=== PATIENT | female | born 1950 | race Caucasian/White ===

== ENCOUNTER 2018-03-16 22:34 | Inpatient (IN) | payer OTHER ==
[~2018-03-16] VITALS: Ht 180.3 cm; Wt 116.1 kg
[2018-03-16 22:34] VITALS: BP 123/63
--- NOTE | 2018-03-16 22:48 | NUR ---
PT BIBA BLS TO ER BED 02
[2018-03-16] MEDS ORDERED: ACETAMINOPHEN EXTRA STRENGTH 500 MG TAB PO ONE (23:00)
[2018-03-16] MEDS ORDERED: ACETAMINOPHEN EXTRA STRENGTH 500 MG TAB ONE (23:08)
[2018-03-16] MEDS ORDERED: NACL 0.9% 500 ML IV SCH (23:26)
[2018-03-16] MEDS ORDERED: ceFAZolin 1,000 MG in DEXT 5% MINI-BAG PLUS 50 ML IV ONE (23:30)
[2018-03-16] MEDS ORDERED: ONDANSETRON 4 MG/2 ML VIAL IVP ONE (23:30)
[2018-03-16] MEDS ORDERED: MORPHINE SULFATE 2 MG/ML SYR IVP ONE (23:30)
--- NOTE | 2018-03-17 00:24 | NUR ---
IV ATTEMPTED X 2 UNNSUCCESFUL. PT REFUSING IV NOW
--- NOTE | 2018-03-17 00:25 | NUR ---
PT TOLD SHE CANNOT HAVE BLANKETS D/T FEVERS
--- NOTE | 2018-03-17 00:35 | NUR ---
PT REFUSED EKG, CALLED EMT A "FUCKING ASSHOLE" AND YELLED AT EMT TO LEAVE ROOM
[2018-03-17] MEDS ORDERED: ceFAZolin 1,000 MG VIAL ONE (01:01)
[2018-03-17 01:29] LABS: BASOPHILS % (AUTO) 0.4 % (0.0-2.0); HEMATOCRIT 34.5 % (36-48); HEMOGLOBIN 11.5 g/dL (12.0-16.0); LYMPHOCYTES # (AUTO) 1.8 K/uL (2.5-16.5); LYMPHOCYTES % (AUTO) 22.1 % (20.5-51.1); MEAN CORPUSCULAR HEMOGLOBIN 31 pg (27-31); MEAN CORPUSCULAR HGB CONC 33 g/dL (33-37); MEAN CORPUSCULAR VOLUME 92.2 fL (80-94); NEUTROPHILS # (AUTO) 5.2 K/uL (1.8-7.7); NEUTROPHILS % (AUTO) 65.5 % (42.2-75.2); PLATELET COUNT (AUTO) 235 K/uL (140-450); RED BLOOD CELL COUNT(AUTO) 3.74 MIL/uL (4.20-5.40); RED CELL DISTRIBUTION WIDTH 13.7 % (11.6-13.7)
--- NOTE | 2018-03-17 01:32 | NUR ---
PT ONGOING WITH ANTIBIOTIC NO ADVERSE REACTION NOTED, PT AAO X4 , SKIN WARM TO TOUCH RESP. EVEN AND UNLBAORED, PT VERBALIZED I WAS IN BED LAST SATURDAY AND I HAVE SPASM AND MY LEG WENT TO SLEEP, NOTED REDNESS ON RIGHT FRY, PER PT HX OF CHF, STROKE, APPENDECTOMY, TONSILLECTOMY, CATARACT REMOVAL, KNEE SURGERY.
[2018-03-17 01:47] LABS: ALBUMIN 2.7 g/dL (3.4-5.0); ANION GAP 11.4 (8-16); CARBON DIOXIDE 29.7 mmol/L (21-32); CREATININE 0.7 mg/dL (0.6-1.3); POTASSIUM 4.1 mmol/L (3.5-5.1); TOTAL BILIRUBIN 0.3 mg/dL (0.0-1.0)
[2018-03-17 01:54] LABS: CREATINE KINASE MB 0.5 ng/mL (0-3.6)
[2018-03-17 01:59] LABS: PROTHROMBIN TIME 10.6 secs (10.8-13.4)
[2018-03-17] MEDS ORDERED: DOCUSATE SODIUM 100 MG GELCAP PO PRN (02:00)
[2018-03-17] MEDS ORDERED: MORPHINE SULFATE 2 MG/ML SYR IVP PRN (02:00)
[2018-03-17] MEDS ORDERED: ONDANSETRON 4 MG/2 ML VIAL IM/IVP PRN (02:00)
[2018-03-17] MEDS ORDERED: ACETAMINOPHEN 325 MG TAB PO PRN (02:00)
[2018-03-17 02:11] LABS: APPEARANCE,URINE CLEAR (CLEAR); BLOOD, URINE NEGATIVE (NEGATIVE); COLOR,URINE YELLOW (YELLOW); UGLUCOSE NEGATIVE (NEGATIVE)
[2018-03-17 02:12] LABS: BILIRUBIN,URINE NEGATIVE (NEGATIVE); LEUKOCYTE ESTERASE ,URINE NEGATIVE (NEGATIVE); NITRITE, URINE NEGATIVE (NEGATIVE)
--- NOTE | 2018-03-17 02:25 | NUR ---
PT AAO AWARE NEED TO BE TRANSFER IN THE FLOOR, EMT TAKING PICTURE OF RIGHT LEG AND ABDOMINAL FOLDS
[2018-03-17 02:45] VITALS: BP 117/48
--- NOTE | 2018-03-17 02:45 | NUR ---
RECEIVED PT FROM ER VIA [place] ESPARZA RN GIVE A REPORT AT BED SIDE PT IS AAOX4 ON TELEMETRY SR PINK COLOR ON ABD FOLDS, RT LE REDNESS AND SCAB AND SCAR, PROTOCOL FOR FALL RISK ON , NOT FEVER SHE DENIAL JOHN SANDOVAL IS ;ORIENTED TO THE FLOOR CALL LIGHT WITHIN REACH
--- NOTE | 2018-03-17 02:52 | NUR ---
Patient will be admitted to care of DR. MATHIAS. Admited to TELE. Will go to room 105A . Belongings list completed. Report to ROWENA
[2018-03-17 03:02] LABS: CHOL/HDL RATIO 1.8 (1-4.5); MAGNESIUM 1.7 mg/dL (1.8-2.4); PHOSPHORUS 4.2 mg/dL (2.5-4.9); THYROID STIMULATING HORMONE 3.73 uIU/mL (0.34-3.74)
[2018-03-17] MEDS: NACL 0.9% 1,000 ML IV SCH ×3 (03:25→18:55)
[2018-03-17] MEDS ORDERED: PHEN100C3 PO (03:30)
[2018-03-17] MEDS ORDERED: BLEOS OP (03:30)
[2018-03-17] MEDS ORDERED: PAX20 PO (03:30)
[2018-03-17] MEDS ORDERED: TRAM50TA1 PO (03:30)
[2018-03-17] MEDS ORDERED: METO25TA PO (03:30)
[2018-03-17] MEDS ORDERED: BACL10TA4 PO (03:30)
[2018-03-17] MEDS ORDERED: PRON INH (03:30)
[2018-03-17] MEDS ORDERED: MONT10TA35 PO (03:30)
[2018-03-17] MEDS ORDERED: FLO.1 PO (03:30)
[2018-03-17] MEDS ORDERED: GABA300C PO (03:30)
[2018-03-17] MEDS ORDERED: traMADol 50 MG TAB PO SCH (03:45)
[2018-03-17 04:00] VITALS: BP 112/48
--- NOTE | 2018-03-17 04:00 | NUR ---
PT IS ASSISTED TO USED BSC VOIDING WELL NOT DISTRESS NOTED IV ON RT AC INFUSING WELL ON TELEMETRY SR
[2018-03-17] MEDS ORDERED: CLINDAMYCIN 600 MG/4 ML VIAL ONE (04:29)
[2018-03-17] MEDS ORDERED: CLINDAMYCIN 600 MG in DEXTROSE 5% 50 ML IV SCH (05:00)
--- NOTE | 2018-03-17 06:08 | NUR ---
PT ON TELEMETRY SR SLEEPING AT THIS TIME BED ALARM ON
[2018-03-17 06:54] LABS: BASOPHILS % (AUTO) 0.3 % (0.0-2.0); HEMATOCRIT 35.1 % (36-48); HEMOGLOBIN 11.5 g/dL (12.0-16.0); LYMPHOCYTES # (AUTO) 1.8 K/uL (2.5-16.5); LYMPHOCYTES % (AUTO) 25.7 % (20.5-51.1); MEAN CORPUSCULAR HEMOGLOBIN 31 pg (27-31); MEAN CORPUSCULAR HGB CONC 33 g/dL (33-37); MEAN CORPUSCULAR VOLUME 93.3 fL (80-94); MONOCYTES # (AUTO) 0.7 K/uL (0.8-1.0); MONOCYTES % (AUTO) 10.2 % (1.7-9.3); NEUTROPHILS # (AUTO) 4.4 K/uL (1.8-7.7); NEUTROPHILS % (AUTO) 63.8 % (42.2-75.2); PLATELET COUNT (AUTO) 231 K/uL (140-450); RED BLOOD CELL COUNT(AUTO) 3.77 MIL/uL (4.20-5.40); WHITE BLOOD COUNT (AUTO) 6.8 K/uL (4.8-10.8)
[2018-03-17] MEDS ORDERED: MAGNESIUM OXIDE 400 MG TAB PO SCH ×2 (07:00→12:00)
[2018-03-17 07:08] LABS: CARBON DIOXIDE 27.9 mmol/L (21-32); CREATININE 0.6 mg/dL (0.6-1.3); POTASSIUM 3.9 mmol/L (3.5-5.1)
--- NOTE | 2018-03-17 07:30 | NUR ---
RECEIVED PT ON BED AAOX4. NO SOB NOTED. NO C/O PAIN AT THIS TIME. IV TO RT FOREARM PATENT AND INTACT. CHEST, DIMINISHED AIR ENTRY TO THE BASES. ABDOMEN SOFT, BOWEL SOUNDS PRESENT. SLIGHT REDNESS TO ABDOMINAL FOLD NOTED, INTER DRY CLOTH IN PLACE. RT LOWER EXT REDNESS FROM CELLULITIS NOTED, WARM TO TOUCH, SKIN INTACT. BLE SWELLING +1, PITTING NOTED, BLE ELEVATED WITH PILLOWS. INSTRUCTED PT TO CALL FOR ASSISTANCE, CALL LIGHT WITHIN REACH, PT VERBALIZED UNDERSTANDING.
[2018-03-17 08:00] VITALS: BP_SYST 111; BP_SYST 117; BP_DIAS 65; BP_DIAS 77
[2018-03-17] MEDS ORDERED: PREDNISOL/SULFACE 0.23%-10% OP SOL. 5 ML BTL OP SCH (09:00)
[2018-03-17] MEDS: GABAPENTIN 300 MG CAP PO SCH ×2 (09:07→20:56)
[2018-03-17] MEDS: METOPROLOL 25 MG TAB PO SCH ×2 (09:07→20:55)
[2018-03-17] MEDS: FLUDROCORTISONE 0.1 MG TAB PO SCH ×2 (09:08→20:52)
[2018-03-17] MEDS: PARoxetine 20 MG TAB PO SCH (09:08)
[2018-03-17] MEDS: BACLOFEN 10 MG TAB PO SCH ×2 (09:08→20:52)
[2018-03-17] MEDS: LACTOBACILLUS RHAMNOSUS GG 1 EACH CAP PO SCH (09:08)
[2018-03-17] MEDS: INTERDRY CLOTH TP SCH (09:09)
--- NOTE | 2018-03-17 09:13 | NUR ---
PATIENT HAS BEEN SCREENED AND CATEGORIZED HIGH NUTRITION RISK. PATIENT WILL BE SEEN WITHIN 1-2 DAYS OF ADMISSION. 03/17/18 03/18/[address]
[2018-03-17] MEDS ORDERED: PHENYTOIN 100 MG CAPER PO SCH ×4 (11:05→21:00)
[2018-03-17 12:00] VITALS: BP 111/65
[2018-03-17] MEDS: CLINDAMYCIN PHOS 600MG/D5W PM 50 ML IV SCH ×2 (12:25→20:59)
--- NOTE | 2018-03-17 14:55 | NUR ---
Architectural Modeler Note: Per Tino from [facility] , patient is on a 7 day bed hold and is one of their short term patients (not intermediate teacher). Tino stated patient was admitted at their facility in November 2017. He reported prior to patient's hospital admission their staff were working on patient's discharge plan to board and [facility]. Tino told me a couple of board and care facilities that evaluated patient, accepted patient, however, patient refused to be discharged to those board and care facilities. He stated patient has an existing Advance Directive which indicates Martha Hurd is patient's power of tax attorney healthcare agent. I requested he fax me Advance Directive documents. He told me he would. Addendum: 03/17/18 at 1505 by Shobha Bazzi Per Tino, patient was receiving PT and OT at their facility.
--- NOTE | 2018-03-17 15:25 | NUR ---
PT RESTING. NO SOB NOTED. NO SIGN SOF PAIN AT THIS TIME. ENDORSED TO ESME-RN FOR CONTINUITY OF CARE.
--- NOTE | 2018-03-17 15:30 | NUR ---
RECEIVED REPORT FROM NURSE SOL AT BEDSIDE. PT IS AAOX4. NO S/S OF ACUTE DISTRESS NOTED. NO C/O PAIN AT THIS TIME. IV TO RT FOREARM 22G, SL, PATENT AND INTACT. IV CATH TO LEFT HAND 22G, ASYMPTOMATIC, INFUSING WELL. INTER DRY CLOTH UNDER BREAST. RT LOWER LEG REDNESS CELLULITIS NOTED, SKIN INTACT. BLE SWELLING +1, PITTING NOTED, BLE ELEVATED WITH PILLOWS. BED LOCKED IN LOWEST POSITION. CALL LIGHT WITHIN REACH.
[2018-03-17 16:00] VITALS: BP 130/76
--- NOTE | 2018-03-17 16:10 | NUR ---
VITALS TAKEN, PT TOLERATED WELL, HELPED PT USING BEDSIDE COMMODE. PT SAFELY RETURNED TO BED.
--- NOTE | 2018-03-17 19:30 | NUR ---
REPORT RECEIVED FROM ESME RN DAYSHIFT NURSE AT BEDSIDE FOR CONTINUITY OF CARE, PT IN STABLE CONDITION.
--- NOTE | 2018-03-17 19:30 | NUR ---
ENDORSED PT TO DEPUTY REGISTER OF DEEDS. PT IN STABLE CONDITION.
[2018-03-17 20:00] VITALS: BP 112/47
[2018-03-17] MEDS: MONTELUKAST SODIUM 10 MG TAB PO SCH (20:56)
[2018-03-17] MEDS: NYSTATIN POW 100 MU/GM 15 GM BTL TP SCH (21:00)
--- NOTE | 2018-03-17 21:00 | NUR ---
PT IN BED, ALL FALLS PRECAUTIONS IN PLACE, PT REQUEST ASSISTANCE TO THE COMMODE. PT REQUIRE A 1 PERSON MODERATE ASSIST FOR PIVOT TRANSFER TO COMMODE AND BACK. PT ASSISTED BACK TO BED AND GIVEN ALL DUE MEDICATIONS. PT C/O 10/27 PAIN. PT WAS GIVEN BACLOFEN 10 MG AND NEURONTIN 300MG WHICH IS DUE AT 2100 FOR PAIN WHICH WAS EXPLAINED TO THE PT. PT AGREED TO TAKE SCHEDULED MEDICATION AND PRIMARY NURSE WILL CHECK BACK TO MAKE SURE MEDIATION STOPPED HER PAIN. CLINDAMYCIN IVPB GIVEN ALSO AT THIS TIME, WILL MONITOR FOR ANY ADVERSE EFFECTS V/S FOLLOWS T 98.5 P 77 R 20 B/P 112/47 02 94 WITH 2L VIA N/C.
[2018-03-17] MEDS: ALBUTEROL SULFATE/IPRATROPIU 3 ML SOL IH PRN (21:20)
--- NOTE | 2018-03-17 22:50 | NUR ---
PT ASLEEP IN LOW BED NO ADVERSE EFFECTS OF CLINDAMYCIN NOTED, AND NO S/S OF PAIN OR DISTRESS NOTED. BED IN LOW POSITION AND ALL FALLS PRECAUTIONS IN PLACE, AND CALL BARNES IN REACH.
[2018-03-18] VITALS: BP 104/60
--- NOTE | 2018-03-18 00:30 | NUR ---
PT IN BED ASLEEP V/S FOLLOWS T 98.4 P 74 R 18 B/P 104/60 02 94 WITH 2L VIA N/C. PT IN BED ALL FALLS PRECAUTIONS IN PLACE, NO S/S OF PAIN OR DISTRESS NOTED.
[2018-03-18 04:00] VITALS: BP 99/35
--- NOTE | 2018-03-18 05:00 | NUR ---
PT IN BED, NO S/S OF PAIN OR DISTRESS NOTED, V/S FOLLOWS T 98.2 P 76 R 20 B/P 99/35 02 92% ON R/A. PT GIVEN 2N DOSE OF CLINDAMYCIN, NO ADVERSE EFFECTS NOTED. LAB DRAWS AT BEDSIDE .
[2018-03-18] MEDS: NACL 0.9% 1,000 ML IV SCH ×3 (05:57→23:59)
[2018-03-18] MEDS: CLINDAMYCIN PHOS 600MG/D5W PM 50 ML IV SCH ×3 (05:59→20:10)
[2018-03-18] MEDS: ALBUTEROL SULFATE/IPRATROPIU 3 ML SOL IH PRN (06:58)
--- NOTE | 2018-03-18 07:34 | NUR ---
REPORT GIVEN TO DOUGIE SERVIN DAYSHIFT NURSE PT IN STABLE CONDITION.
--- NOTE | 2018-03-18 07:38 | NUR ---
RECEIVED FROM BEDSIDE REPORT FROM COSTING ANALYST RN. PT IS AO X4. COMPLAINING OF MILD RT LEG PAIN. STATES THAT THE NEURONTIN AND BACLOFEN ARE "VERY EFFECTIVE" FOR HER PAIN. WILL ADMINISTER THEM SCHEDULED 0900 MEDS. PT IS ABLE TO STAND AND PIVOT TO THE BEDSIDE COMMODE WITH ASSIST. GENERALIZED WEAKNESS. LUNGS SOUNDS DIMINISHED. HEART RHYTHM REGULAR. RT LOWER LEG CELLULITIS WITH SMALL SCABS NOTED. SKIN OTHERWISE INTACT. IV SITE PATENT AND ASYMPTOMATIC, INFUSING IVF PER MD ORDERS. UPDATED BOARD AND INTRODUCED SELF. ALL SAFETY PRECAUTIONS IN PLACE, WILL CONTINUE TO MONITOR. Addendum: 03/18/18 at 1036 by Kajal Anderson Meng, RN RT LEG REDNESS, WARMTH, SWELLING D/T CELLULITIS. LUE 1+ NON-PITTING EDEMA. SEIZURE PRECAUTIONS. Addendum: 03/18/18 at 1255 by Kajla Anderson Meng, RN BLACK GLASSES ON. PER PATIENT, SHE HAD CATARACT SURGERY ONE WEEK AGO.
[2018-03-18 08:00] VITALS: BP 107/59
[2018-03-18 08:07] LABS: BASOPHILS % (AUTO) 0.4 % (0.0-2.0); HEMATOCRIT 34.3 % (36-48); HEMOGLOBIN 11.5 g/dL (12.0-16.0); LYMPHOCYTES # (AUTO) 1.2 K/uL (2.5-16.5); LYMPHOCYTES % (AUTO) 19.1 % (20.5-51.1); MEAN CORPUSCULAR HEMOGLOBIN 31 pg (27-31); MEAN CORPUSCULAR HGB CONC 33 g/dL (33-37); MEAN CORPUSCULAR VOLUME 92.6 fL (80-94); MONOCYTES # (AUTO) 0.5 K/uL (0.8-1.0); MONOCYTES % (AUTO) 8.1 % (1.7-9.3); NEUTROPHILS # (AUTO) 4.7 K/uL (1.8-7.7); NEUTROPHILS % (AUTO) 72.4 % (42.2-75.2); PLATELET COUNT (AUTO) 263 K/uL (140-450); RED CELL DISTRIBUTION WIDTH 13.5 % (11.6-13.7); WHITE BLOOD COUNT (AUTO) 6.5 K/uL (4.8-10.8)
[2018-03-18] MEDS: PARoxetine 20 MG TAB PO SCH (08:19)
[2018-03-18] MEDS: FLUDROCORTISONE 0.1 MG TAB PO SCH ×2 (08:20→20:06)
[2018-03-18] MEDS: BACLOFEN 10 MG TAB PO SCH ×2 (08:20→20:06)
[2018-03-18] MEDS: PHENYTOIN 100 MG CAPER PO SCH ×2 (08:20→16:46)
[2018-03-18] MEDS: GABAPENTIN 300 MG CAP PO SCH ×2 (08:20→20:08)
[2018-03-18] MEDS: LACTOBACILLUS RHAMNOSUS GG 1 EACH CAP PO SCH (08:20)
[2018-03-18] MEDS: METOPROLOL 25 MG TAB PO SCH ×2 (08:21→20:07)
--- NOTE | 2018-03-18 08:24 | NUR ---
PT COMPLAINING OF PAIN IN RT UPPER LATERAL LEG ABOVE THE SITE OF CELLULITIS. NO ERYTHEMA OR INCREASED TEMPERATURE NOTED BUT PT COMPLAINS OF TENDERNESS TO PALPATION. DR. CUMMINS HAS INSTRUCTED THE PT TO INFORM RN IF PAIN PERSISTS AFTER SCHEDULED 0900 MEDICATIONS. PT VERBALIZED UNDERSTANDING. WILL CONTINUE TO MONITOR. Addendum: 03/18/18 at 1442 by Kajal Anderson Meng RN DR. CUMMINS AWARE AND HAS ASSESSED PT REGARDING THIS COMPLAINT.
[2018-03-18 08:26] LABS: ANION GAP 13.1 (8-16); CREATININE 0.6 mg/dL (0.6-1.3); POTASSIUM 4.1 mmol/L (3.5-5.1)
[2018-03-18 08:34] LABS: MAGNESIUM 2.3 mg/dL (1.8-2.4); PHOSPHORUS 4.5 mg/dL (2.5-4.9)
--- NOTE | 2018-03-18 08:34 | NUR ---
NYSTATIN POWDER NOT IN CASSETTE OR AT BEDSIDE. OBTAINED IT FROM PHARMACY.
--- NOTE | 2018-03-18 09:01 | NUR ---
Jet Aircraft Servicer Note: I called and spoke with Tino from [facility] , I told him I had not received patient's Advance Directive documents via fax. Per Tino, he will tell their medical records dept to fax documents to me today.
[2018-03-18] MEDS: INTERDRY CLOTH TP SCH (09:12)
[2018-03-18] MEDS: NYSTATIN POW 100 MU/GM 15 GM BTL TP SCH ×2 (09:13→20:10)
[2018-03-18] MEDS: HYDROcodone/APAP 5/325 MG 1 TAB TAB PO PRN ×2 (09:50→23:25)
--- NOTE | 2018-03-18 09:51 | NUR ---
NORCO ADMINISTERED. PT JUST WORKED WITH PHYSICAL THERAPY. PER PT, THE PAIN WAS STARTING TO COME DOWN GRADUALLY AFTER RECEIVING THE SCHEDULED 0900 NEURONTIN AND BACLOFEN. PAIN SPIKED AFTER WORKING WITH PHYSICAL THERAPY. PT WAS ABLE TO STAND AND PIVOT PER PHYSICAL THERAPY. PT STATES SHE DOES NOT WANT TO BE DISTURBED/WOKEN UP UNTIL SHE IS NATURALLY AWAKE FROM THE NAP SHE PLANS TO TAKE NOW. WILL NOTIFY CHIEF LIBRARIAN BRANCH.
--- NOTE | 2018-03-18 10:03 | NUR ---
REPORTED ORTHOSTATIC HYPOTENSION VALUES TO DR. CUMMINS. Addendum: 03/18/18 at 1237 by Kajal Anderson Meng, RN WRONG PATIENT.
--- NOTE | 2018-03-18 12:38 | NUR ---
PT SLEEPING IN BED, WITH LIGHT SNORING. PT DOES NOT WISH TO BE DISTURBED WHILE ASLEEP. WILL ROUND ON PT LATER AND CONTINUE TO MONITOR.
--- NOTE | 2018-03-18 13:11 | NUR ---
PT STATES THE NORCO WELL VERY WELL IN TERMS OF CONTROLLING HER RT LEG PAIN. STATES THE PAIN IS NOW 5/10, TOLERABLE. DOES NOT WANT PAIN MEDICATION. WILL CONTINUE TO MONITOR.
--- NOTE | 2018-03-18 15:11 | NUR ---
03/18/18 RD INITIAL ASSESSMENT COMPLETED PLEASE REFER TO NUTRITION ASSESSMENT UNDER CARE ACTIVITY FOR ESTIMATED NUTRITIONAL NEEDS. 1. CONTINUE CARDIAC DIET TOLERATED 2. RECOMMEND ENSURE MAX AND MULTIVITAMIN QD 3. RD TO FOLLOW-UP 3-5 DAYS, MODERATE RISK SHERRELL LOPEZ, RD
--- NOTE | 2018-03-18 15:22 | NUR ---
HELPED LOW EMISSION AUTOMOBILE DESIGNER WITH SPONGE BATH. NO S/S DISTRESS.
--- NOTE | 2018-03-18 15:41 | NUR ---
HELPED PATIENT TO BEDSIDE COMMODE. PT VOIDED. HELPED PT BACK INTO BED. PT STATES THE PAIN IS 4/10 TOLERABLE IN RT LOWER LEG. STATES SHE DOES NOT NEED PAIN MEDICATION AT THIS TIME.
--- NOTE | 2018-03-18 15:51 | NUR ---
LT HAND SLIGHTLY MORE SWOLLEN THAN IN THE MORNING HOURS. IV SITE IN LT HAND IS ASYMPTOMATIC AND PATENT, FLUSHES WELL. DENIES PAIN ALONG IV SITE. STOPPED IVF WHICH ARE INFUSING IN THE LT HAND AND ELEVATED PT HAND ON PILLOW. WILL MONITOR AND REC-CONNECT IVF LATER.
[2018-03-18 16:00] VITALS: BP 112/61
--- NOTE | 2018-03-18 18:23 | NUR ---
NO CHANGE IN CONDITION. PT RESTING IN BED, AROUSABLE BY VOICE. NO COMPLAINTS OF PAIN AND DISCOMFORT. WILL CONTINUE TO MONITOR.
--- NOTE | 2018-03-18 19:10 | NUR ---
ENDORSED PLAN OF CARE TO DIAL BRUSHER RN AT BEDSIDE. PT IN STABLE CONDITION.
[2018-03-18] MEDS: MONTELUKAST SODIUM 10 MG TAB PO SCH (20:05)
--- NOTE | 2018-03-18 20:10 | NUR ---
ADMINISTERED SCHEDULED MEDICATIONS, PT TOLERATED WELL.
[2018-03-19] VITALS: BP 150/64
[2018-03-19] MEDS: NACL 0.9% 1,000 ML IV SCH ×2 (03:00→10:30)
[2018-03-19] MEDS: CLINDAMYCIN PHOS 600MG/D5W PM 50 ML IV SCH (04:34)
--- NOTE | 2018-03-19 07:09 | NUR ---
ENDORSED PT TO DAY SHIFT RN BROCK FOR CONTINUITY OF CARE. PT IN STABLE CONDITION.
--- NOTE | 2018-03-19 07:15 | NUR ---
RECEIVED PT FROM NIGHTY SHIFT NURSEKAITLIN, PT IS AWAKE AND LYING ON THE BED WITH SIDE RAILS UP AND CALL LIGHT WITHIN REACH. PT'S IV LINE WAS INFILTRATED AND IV FLUID WAS STOPPED. WAS INFORMED ABOUT THE IV LINE NOT BEING PATENT. WILL BE RE-INSERTING A NEW IV LINE. FALL PRECAUTION ENFORCED. PT DENIES PAIN AT THIS TIME, NO SOB AND NO SIGN OF DISTRESS NOTED. WILL CONTINUE TO MONITOR PT.
--- NOTE | 2018-03-19 07:30 | NUR ---
PT WAS ASSISTED TO THE COMMODE AND URINATED AND ASSISTED BACK TO THE BED AND MADE COMFORTABLE. NO SIGN OF DISTRESS NOTED. WILL MONITOR PT.
[2018-03-19 07:42] LABS: ANION GAP 12.4 (8-16); CARBON DIOXIDE 25.5 mmol/L (21-32); CREATININE 0.5 mg/dL (0.6-1.3); POTASSIUM 3.9 mmol/L (3.5-5.1)
[2018-03-19 08:00] VITALS: BP 130/70
[2018-03-19] MEDS ORDERED: traMADol 50 MG TAB PO PRN (08:57)
[2018-03-19] MEDS: NYSTATIN POW 100 MU/GM 15 GM BTL TP SCH ×2 (09:00→20:23)
[2018-03-19] MEDS: PARoxetine 20 MG TAB PO SCH (09:36)
[2018-03-19] MEDS: MULTIVITAMIN 1 TAB PO SCH (09:37)
[2018-03-19] MEDS: LACTOBACILLUS RHAMNOSUS GG 1 EACH CAP PO SCH (09:37)
[2018-03-19] MEDS: FLUDROCORTISONE 0.1 MG TAB PO SCH ×2 (09:37→20:22)
[2018-03-19] MEDS: GABAPENTIN 300 MG CAP PO SCH ×2 (09:37→20:23)
[2018-03-19] MEDS: METOPROLOL 25 MG TAB PO SCH ×2 (09:38→20:22)
[2018-03-19] MEDS: BACLOFEN 10 MG TAB PO SCH ×2 (09:38→20:22)
[2018-03-19] MEDS: PHENYTOIN 100 MG CAPER PO SCH ×2 (09:38→18:27)
--- NOTE | 2018-03-19 09:40 | NUR ---
CM NOTE PATIENT HAS SECONDARY IEHP. PER IEHP RAMIRO DUKES # [phone], IF PATIENT IS GOING BACK TO SNF, FOR [facility] AUTH# [id number].
[2018-03-19] MEDS: INTERDRY CLOTH TP SCH (09:42)
--- NOTE | 2018-03-19 11:48 | NUR ---
PT EVALUATION WAS DONE TO PT, NOTE WAS MADE BY WOOD BORING MACHINE OPERATOR.
[2018-03-19 12:25] LABS: BASOPHILS % (AUTO) 0.3 % (0.0-2.0); HEMOGLOBIN 11.9 g/dL (12.0-16.0); LYMPHOCYTES # (AUTO) 0.9 K/uL (2.5-16.5); LYMPHOCYTES % (AUTO) 15.5 % (20.5-51.1); MEAN CORPUSCULAR HEMOGLOBIN 31 pg (27-31); MEAN CORPUSCULAR HGB CONC 33 g/dL (33-37); MEAN CORPUSCULAR VOLUME 92.4 fL (80-94); MONOCYTES # (AUTO) 0.6 K/uL (0.8-1.0); MONOCYTES % (AUTO) 10.8 % (1.7-9.3); NEUTROPHILS # (AUTO) 4.4 K/uL (1.8-7.7); NEUTROPHILS % (AUTO) 73.4 % (42.2-75.2); PLATELET COUNT (AUTO) 294 K/uL (140-450); RED CELL DISTRIBUTION WIDTH 13.5 % (11.6-13.7)
--- NOTE | 2018-03-19 12:41 | NUR ---
Certified Alcohol And Drug Counselor Note: I had previously requested Tino from [facility] to fax me patient's existing Advance Directive documents since he stated Martha Hurd is patient's power of living nurse for healthcare agent. Medical Records dept at [facility] faxed me patient's POLST, not Advance Directive documents. I called and spoke with Tino, I told him I had not received Advance Directive documents. He stated Martha Hurd has actually been [facility] staff she will provide them with power of living nurse for healthcare documents but has not. He stated he is not sure if Martha Hurd is one of patient's family members or her relationship with patient. Tino reported the only person they have listed as family on patient's chart is Wiley Licona (brother), he stated they don't have Wiley's phone number or address.
[2018-03-19] MEDS ORDERED: KETOROLAC 15 MG/ML VIAL IVP PRN (13:20)
--- NOTE | 2018-03-19 14:06 | NUR ---
PT WAS ASKED REGARDING THE RAZR SHE USED TO SHAVE HER CHIN LAST NIGHT AND PT VBERBALIZED THAT SHE HAS IN ON HER PURSE AND PT REFUSED TO HAND ON THE RAZOR BECAUSE SHE SAID THAT SHE WILL RETURN IT TO THE PLACE WHERE SHE CAME FROM.
--- NOTE | 2018-03-19 14:07 | NUR ---
K PAD WAS APPLIED TO THE PT'S RT LOWER LEG AND WAS ELEVATED ON A PILLOW.
--- NOTE | 2018-03-19 14:33 | NUR ---
U/S OF THE RT LOWER LEG IS BEING DONE TO PT NOW.
[2018-03-19] MEDS ORDERED: INTERDRY CLOTH TP PRN (15:00)
[2018-03-19 16:00] VITALS: BP 131/78
--- NOTE | 2018-03-19 19:15 | NUR ---
ENDORSED PT TO VALVE INSPECTOR NURSE, LUISA, FOR CONTINUITY OF CARE, PT IS AWAKE AND IS STABLE AT THIS TIME, WATCHING TV.
--- NOTE | 2018-03-19 19:16 | NUR ---
RECEIVED PT IN STABLE CONDITION FROM AM NURSE. MED SURG PT. AAO X4. WITH NO C/O ANY PAIN NOR DISCOMFORT NOTED A THIS TIME. HAS HL ON THE RT AC #20. CLEAR AND PATENT. HAS CELLULITIS ON THE RT LOWER LEG. PT CAN BE UP WITH ASSISTANCE TO BSC. PLAN OF CARE DISCUSSED AND VERBALIZED UNDERSTANDING. BED ON LOWEST POSITION. CALL LIGHT PLACE WITHIN EASY REACH. SIDE RAILS ARE UP WITH PADS FOR SEIZURE PROTECTION. FREQUENT ROUNDS NEEDED. WILL CONTINUE TO MONITOR.
[2018-03-19] MEDS: MONTELUKAST SODIUM 10 MG TAB PO SCH (20:23)
--- NOTE | 2018-03-19 21:45 | NUR ---
ASSISTED PT TO GET UP TO THE BSC. HAD A LARGE SOFT BM. BACK TO BED WITH NO SOB NOTED.
[2018-03-19] MEDS: HYDROcodone/APAP 5/325 MG 1 TAB TAB PO PRN (21:58)
[2018-03-19 22:58] VITALS: BP 124/66
--- NOTE | 2018-03-20 01:00 | NUR ---
MADE ROUNDS. PT SLEEPING WELL. NO S/S OF ANY DISCOMFORT NRO PAIN NOTED.
--- NOTE | 2018-03-20 02:30 | NUR ---
PT ASLEEP . NO S/S OF ANY DISCOMFORT NOTED.
--- NOTE | 2018-03-20 04:00 | NUR ---
PT IS ASLEEP. NO S/S OF ANY RESPIRATORY DISTRESS NOTED. WILL CONTINUE TO MONITOR.
--- NOTE | 2018-03-20 05:24 | NUR ---
AWAKE. BLOOD JUST DRAWN FOR AM LABS, ASSISTED UP TO THE BSC. VOIDED. BACK TO BED. WITH SLIGHT SOB SO O22L/NC ON.
[2018-03-20] MEDS: NACL 0.9% 1,000 ML IV SCH (06:30)
--- NOTE | 2018-03-20 06:30 | NUR ---
IVF NS ALREADY DISCONTINUED, JUST SALINE LOCK.
[2018-03-20 07:05] LABS: BASOPHILS % (AUTO) 0.4 % (0.0-2.0); HEMATOCRIT 38.2 % (36-48); HEMOGLOBIN 12.6 g/dL (12.0-16.0); LYMPHOCYTES # (AUTO) 1.4 K/uL (2.5-16.5); LYMPHOCYTES % (AUTO) 23.4 % (20.5-51.1); MEAN CORPUSCULAR HEMOGLOBIN 31 pg (27-31); MEAN CORPUSCULAR HGB CONC 33 g/dL (33-37); MONOCYTES # (AUTO) 0.5 K/uL (0.8-1.0); MONOCYTES % (AUTO) 7.9 % (1.7-9.3); NEUTROPHILS # (AUTO) 4.2 K/uL (1.8-7.7); NEUTROPHILS % (AUTO) 68.3 % (42.2-75.2); PLATELET COUNT (AUTO) 303 K/uL (140-450); RED BLOOD CELL COUNT(AUTO) 4.11 MIL/uL (4.20-5.40); RED CELL DISTRIBUTION WIDTH 13.7 % (11.6-13.7); WHITE BLOOD COUNT (AUTO) 6.1 K/uL (4.8-10.8)
--- NOTE | 2018-03-20 07:10 | NUR ---
ENDORSED PT IN STABLE CONDITION TO AM NURSE FOR CONTINUITY OF CARE.
--- NOTE | 2018-03-20 07:15 | NUR ---
PT REPORT RECEIVED FROM CUSTOMER ORDERS CLERK NURSE AT BEDSIDE. PT IS SLEEPING AT THIS TIME, NO S/S OF DISTRESS. PT HAS A R FA 20 GAUGE IV SITE, SALINE LOCK. SKIN INTACT EXCEPT FOR THE R LEG CELLULITIS. PT CURRENTLY ON ROOM AIR. BED IS IN LOW POSITION, CALL LIGHT WITHIN REACH. WILL CONTINUE TO MONITOR.
[2018-03-20 07:44] LABS: ANION GAP 13.2 (8-16); CARBON DIOXIDE 26.5 mmol/L (21-32); CREATININE 0.6 mg/dL (0.6-1.3); POTASSIUM 3.7 mmol/L (3.5-5.1)
[2018-03-20 08:00] VITALS: BP 129/79
[2018-03-20] MEDS ORDERED: INTERDRY CLOTH TP SCH ×2 (09:00)
[2018-03-20] MEDS: NYSTATIN POW 100 MU/GM 15 GM BTL TP SCH ×2 (09:00→20:48)
[2018-03-20] MEDS: PARoxetine 20 MG TAB PO SCH (09:29)
[2018-03-20] MEDS: METOPROLOL 25 MG TAB PO SCH ×2 (09:30→20:43)
[2018-03-20] MEDS: MULTIVITAMIN 1 TAB PO SCH (09:30)
[2018-03-20] MEDS: BACLOFEN 10 MG TAB PO SCH ×2 (09:30→20:43)
[2018-03-20] MEDS: LACTOBACILLUS RHAMNOSUS GG 1 EACH CAP PO SCH (09:31)
[2018-03-20] MEDS: PHENYTOIN 100 MG CAPER PO SCH ×2 (09:31→18:07)
[2018-03-20] MEDS: GABAPENTIN 300 MG CAP PO SCH ×2 (09:31→20:44)
[2018-03-20] MEDS: FLUDROCORTISONE 0.1 MG TAB PO SCH ×2 (09:31→21:02)
[2018-03-20] MEDS ORDERED: ECOTRIN 81 MG TABEC PO SCH (11:10)
--- NOTE | 2018-03-20 12:23 | NUR ---
PT COMFORTABLY RESTING IN BED, EATING LUNCH AT THIS TIME. NO S/S OF DISTRESS NOTED. CALL LIGHT WITHIN REACH. WILL CONTINUE TO MONITOR.
[2018-03-20 16:00] VITALS: BP 117/66
--- NOTE | 2018-03-20 19:20 | NUR ---
PT REPORT GIVEN AT BEDSIDE. PT ENDORSED IN STABLE CONDITION.
--- NOTE | 2018-03-20 19:21 | NUR ---
RECEIVED PT IN STABLE CONDITION FROM AM NURSE. AWAKE,ALERT AND ORIENTED X4. MED SURG PT. WITH NO C/O MARTINEZ DISCOMFORT NOR PAIN NOTED AT THIS TIME. HAS HL ON THE RT FA G#20. CLEAR AND PATENT. RT LOWER LEG STILL RED AND SWOLLEN. ELEVATED ON PILLOW. PLAN OF CARE DISCUSSED AND VERBALIZED UNDERSTANDING. BED ON LOWEST POSITION. SIDE RRAILS PADDED FOR SEIZURE PRECAUTION. CALL LIGHT PLACED WITHIN EASY REACH. INSTRUCTED TO CALL IF NEED TO GET UP AND USE BSC. WILL CONTINUE TO MONITOR.
[2018-03-20] MEDS: HYDROcodone/APAP 5/325 MG 1 TAB TAB PO PRN (20:44)
[2018-03-20] MEDS: MONTELUKAST SODIUM 10 MG TAB PO SCH (20:44)
--- NOTE | 2018-03-20 21:40 | NUR ---
ASSISTED PT IN GETTING UP AND INUSING THE BSC, VOIDED WELL. BACK TO BED AND POSITIONED FOR COMFORT.
--- NOTE | 2018-03-20 23:05 | NUR ---
IV ACCESS ON THE RT UPPER ARM G20 . DISCONTINUED. THEN ABLE TO START A NEW IV SITE ON THE RT WRIST G#24. CLEAR AND PATENT.
[2018-03-20 23:30] VITALS: BP 106/56
--- NOTE | 2018-03-20 23:55 | NUR ---
ASSISTED UP TO THE BSC. VOIDED WELL. BACK WITH NO SOB NOTED.
--- NOTE | 2018-03-21 02:00 | NUR ---
MADE ROUNDS. PT IS ASLEEP. NO S/S OF ANY DISCOMFORT NOTED.
--- NOTE | 2018-03-21 04:10 | NUR ---
PT ASLEEP. NO S/S OF ANY PAIN NOR DISCOMOFRT NOTED. WILL CONTINUE TO MONITOR.
--- NOTE | 2018-03-21 06:00 | NUR ---
PT ABLE TO SLEEP WELL DURING THE NIGHT. NO DISTRESS NOTED.
--- NOTE | 2018-03-21 07:10 | NUR ---
PT REPORT RECEIVED FROM CRANE ENGINEER NURSE AT BEDSIDE. PT IS SLEEPING AT THIS TIME, NO S/S OF DISTRESS. PT HAS A R WRIST 24 GAUGE IV SITE, SALINE LOCK. RLE CELLULITIS NOTED. PT CURRENTLY ON ROOM AIR. BED IS IN LOW POSITION, CALL LIGHT WITHIN REACH. WILL CONTINUE TO MONITOR.
--- NOTE | 2018-03-21 07:12 | NUR ---
ENDORSED PT IN STABLE CONDITION TO AM NURSE FOR CONTINUITY OF CARE.
[2018-03-21] MEDS ORDERED: ROC2I IV (07:54)
[2018-03-21] MEDS ORDERED: LACT10CA1 PO (07:55)
[2018-03-21] MEDS: PHENYTOIN 100 MG CAPER PO SCH ×2 (08:52→16:37)
[2018-03-21] MEDS: BACLOFEN 10 MG TAB PO SCH (08:52)
[2018-03-21] MEDS: FLUDROCORTISONE 0.1 MG TAB PO SCH (08:52)
[2018-03-21] MEDS: PARoxetine 20 MG TAB PO SCH (08:52)
[2018-03-21] MEDS: GABAPENTIN 300 MG CAP PO SCH (08:52)
[2018-03-21] MEDS: MULTIVITAMIN 1 TAB PO SCH (08:52)
[2018-03-21] MEDS: LACTOBACILLUS RHAMNOSUS GG 1 EACH CAP PO SCH (08:52)
[2018-03-21] MEDS: METOPROLOL 25 MG TAB PO SCH (08:53)
[2018-03-21] MEDS: NYSTATIN POW 100 MU/GM 15 GM BTL TP SCH (09:00)
[2018-03-21] MEDS ORDERED: ECOTRIN 81 MG TABEC PO SCH (09:00)
[2018-03-21 09:08] LABS: BASOPHILS % (AUTO) 0.7 % (0.0-2.0); HEMATOCRIT 38.4 % (36-48); HEMOGLOBIN 12.7 g/dL (12.0-16.0); LYMPHOCYTES # (AUTO) 1.3 K/uL (2.5-16.5); LYMPHOCYTES % (AUTO) 23.1 % (20.5-51.1); MEAN CORPUSCULAR HEMOGLOBIN 31 pg (27-31); MEAN CORPUSCULAR HGB CONC 33 g/dL (33-37); MEAN CORPUSCULAR VOLUME 93.1 fL (80-94); MONOCYTES # (AUTO) 0.4 K/uL (0.8-1.0); MONOCYTES % (AUTO) 6.9 % (1.7-9.3); NEUTROPHILS % (AUTO) 69.3 % (42.2-75.2); PLATELET COUNT (AUTO) 293 K/uL (140-450); RED BLOOD CELL COUNT(AUTO) 4.13 MIL/uL (4.20-5.40); RED CELL DISTRIBUTION WIDTH 13.5 % (11.6-13.7); WHITE BLOOD COUNT (AUTO) 5.8 K/uL (4.8-10.8)
[2018-03-21 09:16] LABS: CARBON DIOXIDE 26.7 mmol/L (21-32); CREATININE 0.7 mg/dL (0.6-1.3); POTASSIUM 3.7 mmol/L (3.5-5.1)
--- NOTE | 2018-03-21 10:26 | NUR ---
Crew Clerk Note: I called and spoke with Martha Hurd , she stated she is patient's sister and will fax me power of patent attorney for healthcare documents. I provided her with case management/hospice social worker dept fax number. She reported she lives in [place].
--- NOTE | 2018-03-21 10:32 | NUR ---
Firestop/Containment Worker Note: I faxed patient's medical information to [facility].
--- NOTE | 2018-03-21 11:30 | NUR ---
Scissors Sharpener Note: Per patient's nurse Nanda, patient is not on isolation. Per Tino from [facility] , patient may go to room 220C, accepting physician is Dr. Robins, counseling case manager Gemini mustafa aware.
[2018-03-21 11:54] VITALS: BP 127/64
--- NOTE | 2018-03-21 12:56 | NUR ---
CM NOTE PER [facility] PH# [phone], PATIENT WILL BE PICKED UP AT 1700 TIME TODAY GOING TO [address] RERE SERVIN AWARE.
[2018-03-21] MEDS ORDERED: ASPI-1173 PO (14:00)
--- NOTE | 2018-03-21 15:00 | NUR ---
P.T. NOTES PATIENT CLEARED BY RN FOR PT TX. CHART REVIEWED. ATTEMPTED TO WORK WITH PATIENT 2X FOR PT, BUT PATIENT CONTINUES TO DECLINE SHE IS PENDING DC FROM HOSPITAL TODAY. Pt PROVIDED W/EDU REGARDING BENEFITS OF PT AND MOBILITY BUT REFUSES PT, STATING "I'LL GET LOTS OF THERAPY AT THE PLACE I'M GOING TO AFTER HERE." NO PT TX DONE.
[2018-03-21 16:00] VITALS: BP 112/65
--- NOTE | 2018-03-21 17:20 | NUR ---
PT HAS DISCHARGED TO [facility]. PT IS TRANSPORTED BY [facility]. DISCHARGE DOCUMENTS GIVEN, SIGNATURES OBTAINED. WRIST BANDS REMOVED. IV SITE MAINTAINED, PT WILL BE CONTINUING IV ABX AT [facility]. PT LEFT WITH ALL HER BELONGINGS. PT DISCHARGED IN STABLE CONDITION.
== END 2018-03-21 17:20 | DRG 299 ==
LOC: MED 22:34 → MTU 03-17 02:03
PROVIDERS: ADMIT General Practice; ATTEND General Practice
DX: I73.9 Peripheral vascular disease, unspecified (principal); E43 Unspecified severe protein-calorie malnutrition; L03.115 Cellulitis of right lower limb; B37.89 Other sites of candidiasis; E83.42 Hypomagnesemia; J44.9 Chronic obstructive pulmonary disease, unspecified; I10 Essential (primary) hypertension; G40.909 Epilepsy, unspecified, not intractable, without status epilepticus; I49.5 Sick sinus syndrome; I48.91 Unspecified atrial fibrillation; Z96.651 Presence of right artificial knee joint; F32.9 Major depressive disorder, single episode, unspecified; D50.9 Iron deficiency anemia, unspecified; I95.1 Orthostatic hypotension; E66.01 Morbid (severe) obesity due to excess calories; Z68.35 Body mass index [BMI] 35.0-35.9, adult; L30.4 Erythema intertrigo; Z79.899 Other long term (current) drug therapy; Z86.73 Personal history of transient ischemic attack (TIA), and cerebral infarction without residual deficits; Z95.0 Presence of cardiac pacemaker; I25.2 Old myocardial infarction; Z98.41 Cataract extraction status, right eye
CPT/HCPCS: 36415; 71045; 76881; 80048; 80053; 80185; 81003; 82550; 82553; 83036; 83605; 83690; 83735; 83880; 84100; 84443; 84484; 85025; 85610; 85730; 86886; 86900; 86901; 87040; 87081; 87086; 93005; 93925; 93971; 94640; 96361; 96365; 96375; 97110; 97116; 97530; 99285; J0690; J0696; J1644; J1885; J2270; J2405; J3490; J7030; J7060; J7620; Q0092

== ENCOUNTER 2018-04-22 18:04 | Inpatient (IN) | payer OTHER ==
[~2018-04-22] VITALS: Ht 167.6 cm; Wt 90.7 kg
[~2018-04-22 18:04] MED LIST: ASPI-1173 PO; BACL10TA4 PO; BLEOS OP; FLO.1 PO; GABA300C PO; LACT10CA1 PO; METO25TA PO; MONT10TA35 PO; PAX20 PO; PHEN100C3 PO; PRON INH; ROC2I IV; TRAM50TA1 PO
--- NOTE | 2018-04-22 18:06 | NUR ---
PEDRITO POLLARD, CURRENTLY AWAITING BED
--- NOTE | 2018-04-22 18:10 | NUR ---
67 YO F BIB EMS [facility] B[facility] W/ C/O RIGHT LOWER LEG PAIN, POTENTIAL CELLULITIS (HX CELLULITIS). SENT OVER FROM SNF FOR EVALUATION. PT STATES PAIN 10/10 AND IS BURNING. RIGTH LOWER LEG W/ EDEMA. CMS INTACT. PT DENIES N/V/D/FEVER. REPORTS INTERMITTENT DIZZINESS. PT STATES SHE USES A W/C FOR MOBILITY, HAS BEEN UNABLE TO WALK FOR 1 YEAR BECAUSE OF RECURRENT LEG CELLULITIS. PT RECEIVED DOSE OF DILAUDID PRIOR TO LEAVING SNF. PT AAOX4, GCS 15. RR EVEN AND UNLABORED. PT ON 2L/MIN NC. BED DOWN, BEDRAIL UP X 1, ER MD AWARE AND NOTIFIED OF PT STATUS. HX COPD, PACEMAKER, TIA 1 MONTH AGO, CATARACT SURGERY ON LEFT EYE "RECENTLY", PT IS STILL TO WEAR SUNGLASSES UNTIL SHE IS CLEARED FROM OPTOMOTRIST PER PT. RX
[2018-04-22 18:11] VITALS: BP 128/70
--- NOTE | 2018-04-22 18:11 | NUR ---
PT TAKEN TO BED 11 BY EMS CREW
[2018-04-22] MEDS ORDERED: PIPERACILLIN/TAZOBACTAM 3.375 GM in DEXTROSE 5% 50 ML IV ONE (18:35)
[2018-04-22] MEDS ORDERED: PIPERACILLIN/TAZOBACTAM 3.375 GM VIAL IV ONE (18:53)
[2018-04-22 19:03] LABS: BASOPHILS % (AUTO) 0.2 % (0.0-2.0); HEMATOCRIT 39.8 % (36-48); LYMPHOCYTES # (AUTO) 1.2 K/uL (2.5-16.5); LYMPHOCYTES % (AUTO) 18.2 % (20.5-51.1); MEAN CORPUSCULAR HEMOGLOBIN 30 pg (27-31); MEAN CORPUSCULAR HGB CONC 33 g/dL (33-37); MEAN CORPUSCULAR VOLUME 91.3 fL (80-94); MONOCYTES # (AUTO) 0.3 K/uL (0.8-1.0); MONOCYTES % (AUTO) 5.1 % (1.7-9.3); NEUTROPHILS # (AUTO) 5.2 K/uL (1.8-7.7); NEUTROPHILS % (AUTO) 76.5 % (42.2-75.2); PLATELET COUNT (AUTO) 258 K/uL (140-450); RED BLOOD CELL COUNT(AUTO) 4.36 MIL/uL (4.20-5.40); RED CELL DISTRIBUTION WIDTH 13.9 % (11.6-13.7); WHITE BLOOD COUNT (AUTO) 6.8 K/uL (4.8-10.8)
--- NOTE | 2018-04-22 19:11 | NUR ---
SEIZURE PRECAUTIONS IMPLEMENTED. PADS ON RAILS X 2.
[2018-04-22 19:12] LABS: ANION GAP 12.2 (8-16); CARBON DIOXIDE 29.9 mmol/L (21-32); CREATININE 0.7 mg/dL (0.6-1.3); POTASSIUM 4.1 mmol/L (3.5-5.1)
[2018-04-22 19:17] LABS: PROTHROMBIN TIME 10.7 secs (10.8-13.4)
[2018-04-22 19:18] LABS: ALBUMIN 3.1 g/dL (3.4-5.0); TOTAL BILIRUBIN 0.2 mg/dL (0.0-1.0)
[2018-04-22 19:30] LABS: ACETONE, SERUM NEGATIVE (NEGATIVE); URIC ACID 4.1 mg/dL (2.6-7.2)
[2018-04-22] MEDS ORDERED: DOCUSATE SODIUM 100 MG GELCAP PO PRN (21:40)
[2018-04-22] MEDS ORDERED: ONDANSETRON 4 MG/2 ML VIAL IM/IVP PRN (21:40)
[2018-04-22] MEDS ORDERED: HYDROcodone/APAP 7.5/325 MG 1 TAB PO PRN (21:40)
--- NOTE | 2018-04-22 22:20 | NUR ---
INTERDRY APPLIED TO SKIN FOLDS.
[2018-04-22 22:27] LABS: BARBITURATE, URINE NEG. ng/ml (NEG <=200); BENZODIAZEPINE, URINE NEG. ng/mL (NEG <=200); CANNABINOID, URINE NEG. ng/mL (NEG <=50); COCAINE, URINE NEG. ng/mL (NEG <=300); OPIATE, URINE NEG. ng/mL (NEG <=2000); PHENCYCLIDINE SCREEN,URINE NEG. ng/mL (NEG <=25)
[2018-04-22 22:30] VITALS: BP 123/65
[2018-04-22 22:30] LABS: APPEARANCE,URINE CLEAR (CLEAR); BILIRUBIN,URINE NEGATIVE (NEGATIVE); BLOOD, URINE NEGATIVE (NEGATIVE); COLOR,URINE YELLOW (YELLOW); LEUKOCYTE ESTERASE ,URINE NEGATIVE (NEGATIVE); NITRITE, URINE NEGATIVE (NEGATIVE); PH,URINE 6.5 (5.0-9.0); UGLUCOSE NEGATIVE (NEGATIVE)
--- NOTE | 2018-04-22 22:30 | NUR ---
RECEIVED BEDSIDE REPORT FROM TON CONTAINER SHIPPER SHAYNA, PATIENT UNABLE TO AMBULATE, NOTED RIGHT LEG CELLULITIS, IV IN RIGHT HAND 24 G SL, PATIENT HAS CATARACT GLASSES ON, STATED SHE IS IN PAIN, NOTED REDNESS UNDER SKIN FOLDS. MRSA SCREEN COLLECTED AND SENT TO LAB, V/S TAKEN ALL STABLE, BED ALARM, ON WILL CONTINUE TO MONITOR. Addendum: 04/23/18 at 0333 by Elis Sullivan RN PICTURE TAKEN OF RIGHT LEG CELLULITIS.
[2018-04-22 22:40] LABS: FREE T4 (FREE THYROXINE) 0.75 ng/dL (0.76-1.46); PHOSPHORUS 3.8 mg/dL (2.5-4.9); THYROID STIMULATING HORMONE 1.47 uIU/mL (0.34-3.74)
--- NOTE | 2018-04-22 22:40 | NUR ---
Patient will be admitted to care of DR. MATHIAS. Admited to TELEMETRY. Will go to room 106A. Belongings list completed. Report to AUREA SERVIN.
--- NOTE | 2018-04-22 22:40 | NUR ---
Pt report given to SUMMER RN. Transfer of care at this time.VITALS STABLE.
[2018-04-22] MEDS: MORPHINE SULFATE 2 MG/ML SYR IVP PRN (23:22)
--- NOTE | 2018-04-22 23:22 | NUR ---
MEDICATED WITH MORPHINE ACCORDING TO MD ORDER.
[2018-04-22] MEDS ORDERED: INTERDRY CLOTH TP PRN (23:25)
[2018-04-23] MEDS ORDERED: KETOROLAC 30 MG/ML VIAL IM SCH
--- NOTE | 2018-04-23 | NUR ---
OKAY TO GIVE TORADOL NOW ACCORDING TO DR BARRAGAN.
[2018-04-23] MEDS ORDERED: MONT10TA35 PO (00:31)
[2018-04-23] MEDS ORDERED: DOCU-299 PO (00:31)
[2018-04-23] MEDS ORDERED: DICL100G5 TP (00:31)
[2018-04-23] MEDS ORDERED: PHENYTOIN 100 MG CAPER PO SCH (01:00)
[2018-04-23] MEDS ORDERED: INFLUENZA VIRUS VACCINE QUAD 0.5 ML SYR IMVAC ONE (03:05)
--- NOTE | 2018-04-23 03:33 | NUR ---
V/S TAKEN ALL WITHIN BASELINE, WILL CONTINUE TO MONITOR.
[2018-04-23 04:00] VITALS: BP 125/60
--- NOTE | 2018-04-23 05:46 | NUR ---
PATIENT RESTING IN BED, OFFERED WATER, CALL LIGHT WITHIN REACH WILL CONTINUE TO MONITOR.
[2018-04-23 06:40] LABS: BASOPHILS % (AUTO) 0.2 % (0.0-2.0); HEMATOCRIT 36.9 % (36-48); HEMOGLOBIN 11.9 g/dL (12.0-16.0); LYMPHOCYTES # (AUTO) 1.1 K/uL (2.5-16.5); LYMPHOCYTES % (AUTO) 25.9 % (20.5-51.1); MEAN CORPUSCULAR HEMOGLOBIN 30 pg (27-31); MEAN CORPUSCULAR HGB CONC 32 g/dL (33-37); MEAN CORPUSCULAR VOLUME 91.6 fL (80-94); MONOCYTES # (AUTO) 0.4 K/uL (0.8-1.0); MONOCYTES % (AUTO) 8.3 % (1.7-9.3); NEUTROPHILS # (AUTO) 2.9 K/uL (1.8-7.7); NEUTROPHILS % (AUTO) 65.6 % (42.2-75.2); PLATELET COUNT (AUTO) 177 K/uL (140-450); RED BLOOD CELL COUNT(AUTO) 4.03 MIL/uL (4.20-5.40); RED CELL DISTRIBUTION WIDTH 13.9 % (11.6-13.7); WHITE BLOOD COUNT (AUTO) 4.4 K/uL (4.8-10.8)
[2018-04-23 07:07] LABS: ANION GAP 13.2 (8-16); CARBON DIOXIDE 27.7 mmol/L (21-32); CREATININE 0.6 mg/dL (0.6-1.3); POTASSIUM 3.9 mmol/L (3.5-5.1)
--- NOTE | 2018-04-23 07:28 | NUR ---
ENDORSED PATIENT TO DAY SHIFT NURSE, PATIENT STABLE.
--- NOTE | 2018-04-23 07:33 | NUR ---
RECEIVED PT FROM POT PUSHER NURSE, PT IS ASLEEP LYING ON THE BED, BED IN LOW POSITION, FALL PRECAUTION ENFORCED, PT HAS AN IV LINE ON THE RT HAND G. 24, INTACT ON SALINE LOCK, RESPIRATION EVEN AND NO SIGN OF DISTRESS NOTED. WILL CONTINUE TO MONITOR PT.
[2018-04-23 08:00] VITALS: BP 118/63
--- NOTE | 2018-04-23 08:47 | NUR ---
PATIENT HAS BEEN SCREENED AND CATEGORIZED HIGH NUTRITION RISK. PATIENT WILL BE SEEN WITHIN 1-2 DAYS OF ADMISSION. 04/23/18-04/24/[address]
[2018-04-23] MEDS: GABAPENTIN 300 MG CAP PO SCH ×2 (08:53→20:24)
[2018-04-23] MEDS: PARoxetine 20 MG TAB PO SCH (08:54)
[2018-04-23] MEDS: FLUDROCORTISONE 0.1 MG TAB PO SCH ×2 (08:56→20:25)
[2018-04-23] MEDS: METOPROLOL 25 MG TAB PO SCH ×2 (08:56→20:24)
[2018-04-23] MEDS ORDERED: PREDNISOL/SULFACE 0.23%-10% OP SOL. 5 ML BTL OP SCH (09:00)
[2018-04-23] MEDS: MORPHINE SULFATE 2 MG/ML SYR IVP PRN ×2 (09:13→16:22)
--- NOTE | 2018-04-23 09:18 | NUR ---
PT IS AWAKE AND V/S TAKEN AND IS WITHIN NORMAL LIMITS, ORAL MEDICATIONS GIVEN AND PAIN MEDICATION GIVEN ALSO, NO SIGN OF DISTRESS NOTED AND WILL CONTINUE TO MONITOR PT.
[2018-04-23 12:00] VITALS: BP 117/64
--- NOTE | 2018-04-23 13:10 | NUR ---
SWA WAS DONE TO THE WOUND ON THE RT LEG, SAMPLE WAS SENT TO LAB FOR AN AEROBIC WOUND CULTURE.
--- NOTE | 2018-04-23 13:15 | NUR ---
Cash Application Representative Note: Per Tino from [facility] , patient is on a 7 day bed hold. He stated plan is for patient to be discharged to a board and care upon discharge from [facility].
[2018-04-23] MEDS: NACL 0.9% 1,000 ML IV SCH (13:41)
--- NOTE | 2018-04-23 13:43 | NUR ---
PT WA STARTED ON IVF OF NS AT A RATE OF 60ML/HR.
--- NOTE | 2018-04-23 14:02 | NUR ---
04/23/18 RD INITIAL ASSESSMENT COMPLETED PLEASE REFER TO NUTRITION ASSESSMENT UNDER CARE ACTIVITY FOR ESTIMATED NUTRITIONAL NEEDS. 1. CONTINUE CARDIAC DIET TOLERATED 2. EDUCATE ON HEART HEALTHY LOW SODIUM DIET 3. RD TO FOLLOW-UP 3-5 DAYS, MODERATE RISK SHERRELL LOPEZ, RD
[2018-04-23 16:00] VITALS: BP 114/58
--- NOTE | 2018-04-23 16:00 | NUR ---
PT'S IV LINE WAS INFILTRATED AND A NEW IV LINE WAS STARTED ON THE LEFT HAND G. 22.
--- NOTE | 2018-04-23 16:21 | NUR ---
WOUND CARE NOTE INTEGUMENTARY: -LLE CELLULITIS WITH SKIN LACERATION 1X5X0.1, WOUND BED IS PINK, MARGARITA-WOUND SKIN INTACT, ERYTHEMA AND WARM, NO ODOR, NO DRAINAGE RECOMMENDATIONS: -US PENDING TO LLE -CLEANSE LEFT LOWER LEG SKIN LACERATION WITH NS. PAT DRY AND APPLY SILVASORB GEL AND COVER WITH ISLAND DRESSING QD AND PRN IF SOILING. -OFFLOAD BILATERAL HEELS BY PLACING PILLOWS UNDER CALVES UNLESS OTHERWISE CONTRAINDICATED -TURN AND REPOSITION Q2H, OFFLOAD SACRALCOCCYX, R/L BUTTOCKS BY TURNING RIGHT AND LEFT -MONITOR SKIN CONDITION EACH TIME PT IS REPOSITIONS -CONTINUE TO FOLLOW RD RECOMMENDATIONS ALL ABOVE RECOMMENDATIONS DISCUSSED WITH PRIMARY RN WILL FOLLOW UP PT Q7-10 DAYS. PLEASE CONTACT WOUND CARE NURSE FOR ANY QUESTION AND CHANGE OF WOUND CONDITION. Addendum: 04/23/18 at 1630 by Payal Pickard RN (Grace) CORRECTION: CELLULITIS IS ON RIGHT LOWER LEG
[2018-04-23] MEDS: PIPER/TAZO 3.375GM/D5W PREMIX 50 ML IV SCH ×2 (17:14→23:06)
--- NOTE | 2018-04-23 17:14 | NUR ---
PT IS AWAKE AND LYING ON THE BED, IV MEDICATION GIVEN VIA PIGGYBACK. PT TOLERATED IT AND WILL CONTINUE TO MONITOR PT.
--- NOTE | 2018-04-23 19:25 | NUR ---
ENDORSED PT TO LACROSSE COACH NURSE FOR CONTINUITY OF CARE. PT TIS STABLE AT THIS TIME.
--- NOTE | 2018-04-23 19:26 | NUR ---
REPORT RECEIVED FROM AM NURSE AT BEDSIDE. PT IN STABLE CONDITION. AAOX4. INTRODUCED SELF TO PT. BOARD UPDATED. PT ON 2L O2 VIA NC. PT HAS HOLT. IV SITE L HAND 22G RUNNING NS@60ML/HR PATENT AND INTACT. SKIN WARM, DRY, AND NOT INTACT DUE TO AN OPEN WOUND ON THE RIGHT LEG RELATED TO CELLULITIS. BED LOCKED IN LOW POSITION. CALL BARNES WITHIN REACH. SAFETY PRECAUTIONS IN PLACE. SEIZURE PRECAUTIONS IN PLACE.
[2018-04-23 20:00] VITALS: BP 134/70
--- NOTE | 2018-04-23 20:24 | NUR ---
DILANTIN, FLORINEF, LOPRESSOR, NEURONTIN, AND SINGULAIR GIVEN PO. HEPARIN GIVEN SUBQ. PT TOLERATED WELL.
[2018-04-23] MEDS: PHENYTOIN 100 MG CAPER PO SCH (20:25)
[2018-04-23] MEDS: MONTELUKAST SODIUM 10 MG TAB PO SCH (20:25)
--- NOTE | 2018-04-23 23:06 | NUR ---
CARLOS HUNG AND RUNNING. PT TOLERATING WELL.
[2018-04-24] VITALS: BP 129/70
--- NOTE | 2018-04-24 01:10 | NUR ---
PT SLEEPING COMFORTABLY IN BED. NO S/S OF DISTRESS NOTED.
[2018-04-24] MEDS: MORPHINE SULFATE 2 MG/ML SYR IVP PRN ×2 (02:05→21:43)
--- NOTE | 2018-04-24 02:05 | NUR ---
MORPHINE GIVEN FOR 10/10 LEG PAIN. PT TOLERATED WELL.
[2018-04-24] MEDS: ACETAMINOPHEN 325 MG TAB PO PRN ×2 (03:17→12:10)
--- NOTE | 2018-04-24 03:17 | NUR ---
TYL GIVEN FOR A FEVER OF 101.3. PT TOLERATED WELL.
[2018-04-24 04:00] VITALS: BP 141/63
--- NOTE | 2018-04-24 04:17 | NUR ---
REASSESSED TEMP. 98.7. FEVER RESOLVED.
--- NOTE | 2018-04-24 04:30 | NUR ---
PT DID NOT WANT KPAD ANYMORE. KPAD TAKEN TO DIRTY UTILITIES CLOSET.
[2018-04-24] MEDS: PIPER/TAZO 3.375GM/D5W PREMIX 50 ML IV SCH ×3 (05:15→17:22)
--- NOTE | 2018-04-24 05:15 | NUR ---
CARLOS HUNG AND RUNNING. PT TOLERATING WELL.
[2018-04-24] MEDS: NACL 0.9% 1,000 ML IV SCH ×2 (06:26→22:15)
--- NOTE | 2018-04-24 07:20 | NUR ---
REPORT GIVEN TO AM NURSE AT BEDSIDE. PT IN STABLE CONDITION.
--- NOTE | 2018-04-24 07:25 | NUR ---
RECEIVED PT FROM SPARE HAND NURSE, LUCINDA, PT HAS AN IV LINE ON THE LEFT HAND G. 22 WITH NS AT 60ML/HR, INFUSING, FALL PRECAUTION INITIATED, BED IN LOW POSITION, SIDE RAILS ARE UP AND YELLOW GOWN, YELLOW BAND AND YELLOW SIGN WERE PLACED, PT HAS A HOLT CATHETER IN PLACE AND A RT LOWER LEG OPEN WOUND REINFORCED WITH DRESSING AND A BLE CELLULITIS NOTED. PT IS ON O2 2L VIA NC. PT DENIES PAIN AT THIS TIME AND NO SIGN OF DISTRESS NOTED. WILL CONTINUE TO MONITOR PT.
[2018-04-24 07:59] LABS: BASOPHILS % (AUTO) 0.1 % (0.0-2.0); HEMOGLOBIN 12.4 g/dL (12.0-16.0); LYMPHOCYTES # (AUTO) 0.7 K/uL (2.5-16.5); LYMPHOCYTES % (AUTO) 12.2 % (20.5-51.1); MEAN CORPUSCULAR HEMOGLOBIN 30 pg (27-31); MEAN CORPUSCULAR HGB CONC 33 g/dL (33-37); MEAN CORPUSCULAR VOLUME 91.3 fL (80-94); MONOCYTES # (AUTO) 0.2 K/uL (0.8-1.0); MONOCYTES % (AUTO) 4.1 % (1.7-9.3); NEUTROPHILS # (AUTO) 5.1 K/uL (1.8-7.7); NEUTROPHILS % (AUTO) 83.6 % (42.2-75.2); PLATELET COUNT (AUTO) 71 K/uL (140-450); RED BLOOD CELL COUNT(AUTO) 4.16 MIL/uL (4.20-5.40); RED CELL DISTRIBUTION WIDTH 13.6 % (11.6-13.7); WHITE BLOOD COUNT (AUTO) 6.1 K/uL (4.8-10.8)
[2018-04-24 08:00] VITALS: BP 123/73
[2018-04-24 08:23] LABS: MAGNESIUM 1.9 mg/dL (1.8-2.4); PHOSPHORUS 3.7 mg/dL (2.5-4.9)
[2018-04-24 08:24] LABS: T4 (THYROXINE) 5.4 ug/dL (4.5-12.0)
[2018-04-24] MEDS ORDERED: VANCOMYCIN PER PHARMACY MC PRN (08:25)
[2018-04-24] MEDS ORDERED: VANCOMYCIN 500 MG in DEXTROSE 5% 100 ML IV SCH (08:25)
[2018-04-24] MEDS: LACTOBACILLUS RHAMNOSUS GG 1 EACH CAP PO SCH (09:18)
[2018-04-24] MEDS: ASPIRIN 81 MG TAB.CHEW PO SCH (09:19)
[2018-04-24] MEDS: FLUDROCORTISONE 0.1 MG TAB PO SCH ×2 (09:19→20:36)
[2018-04-24] MEDS: PARoxetine 20 MG TAB PO SCH (09:19)
[2018-04-24] MEDS: METOPROLOL 25 MG TAB PO SCH ×2 (09:20→20:36)
[2018-04-24] MEDS: GABAPENTIN 300 MG CAP PO SCH ×2 (09:27→20:35)
--- NOTE | 2018-04-24 09:33 | NUR ---
PT IS AWAKE , V/S TAKEN AND IS WITHIN NORMAL LIMITS, AND ORAL MEDICATIONS WERE GIVEN, HEPARIN WAS HOLD OFF FOR THE LOW PLATELET COUNT. WILL CONTINUE TO MONITOR PT.
[2018-04-24 10:07] LABS: ANION GAP 17.5 (8-16); CARBON DIOXIDE 23.8 mmol/L (21-32); CREATININE 0.8 mg/dL (0.6-1.3); POTASSIUM 4.3 mmol/L (3.5-5.1)
[2018-04-24] MEDS: VANCOMYCIN 1GM/DEXT 5% PREMIX 200 ML IV SCH ×2 (11:31→21:42)
--- NOTE | 2018-04-24 11:34 | NUR ---
PT IS ASLEEP AND RESPIRATION EVEN, IV MEDICATION GIVEN VIA PIGGYBACK, PT TOLERATED IT. WILL MONITOR PT.
[2018-04-24 12:00] VITALS: BP 136/70
--- NOTE | 2018-04-24 12:12 | NUR ---
PT'S WAS CHECKED AND TEMPERATURE READING IS 100.4, TYLENOL WAS GIVEN TO PT. WILL RE-ASSESS PT IN AN HOUR.
--- NOTE | 2018-04-24 13:11 | NUR ---
PT IS AWAKE AND JUST FINISHED HER LUNCH, WATCHING TV, IV MEDICATION GIVEN AND PT TOLERATED IT. WILL MONITOR PT.
[2018-04-24] MEDS: ALBUTEROL SULFATE/IPRATROPIU 3 ML SOL IH PRN (13:22)
--- NOTE | 2018-04-24 13:22 | NUR ---
AWAKE AND ALERT RESPONSIVE TO VARNISHING UNIT TOOL SETTER VERBAL COMMANDS C/O SOB AND NASAL DRYNESS WITH SUPPLEMENTAL OXYGEN USE HHN PRN THERAPY GIVEN POST THERAPY ADDED HUMIDIFIER
--- NOTE | 2018-04-24 13:29 | NUR ---
PT IS HAVING BREATHING TX NOW.
--- NOTE | 2018-04-24 15:02 | NUR ---
Cylinder Press Operator Apprentice Note: I faxed patient's medical information to [facility]. Per Tino from [facility] , patient has exhausted snf medicare days and they will need authorization from [facility] before patient is transfer to their facility upon discharge, case packer and sealer Gemini made aware.
[2018-04-24 16:00] VITALS: BP 116/64
--- NOTE | 2018-04-24 17:24 | NUR ---
PT'S BLOOD GLUCOSE WAS CHECKED PER DR. CRUZ AND RESULT IS 139, IV MEDICATION GIVEN VIA PIGGYBACK. WILL MONITOR PT.
[2018-04-24] MEDS: KETOROLAC 30 MG/ML VIAL IM PRN (17:34)
--- NOTE | 2018-04-24 17:44 | NUR ---
PT WAS GIVEN ZOFRAN FOR THE NAUSEA AND TORADOL FOR THE PAIN OF 6/10. WILL MONITOR PT.
--- NOTE | 2018-04-24 19:30 | NUR ---
ENDORSED PT TO METAL POLISHER NURSESESAR FOR CONTINUITY OF CARE, PT IS STABLE AT THIS TIME.
[2018-04-24 19:34] VITALS: BP 118/70
--- NOTE | 2018-04-24 19:35 | NUR ---
RECEIVED FROM AM RN IN BED IN SITTING UP POSITION. ABLE TO VERBALIZE NEEDS WELL. EYES CLOSED. NO SOB. DENIES ANY PAIN AT THIS TIME. CALL LIGHT WITH IN REACH. CARE PLANS FOR THE NIGHT DISCUSSED WITH HER. TELEMETRY MONITORING.
[2018-04-24] MEDS: MONTELUKAST SODIUM 10 MG TAB PO SCH (20:36)
[2018-04-24] MEDS: PHENYTOIN 100 MG CAPER PO SCH (20:36)
--- NOTE | 2018-04-24 21:10 | NUR ---
NEW IVF LINE INSERTED TO LEFT UPPER ARM #22 BY CHARGE NURSE RT PREVIOUS IVF LINE INFILTRATED AND OOZING. NEW LINE WITH GOOD BLOOD RETURN. TOLERATED WELL. OLD IVF LINE D/CD WITH TIP INTACT. COVERED WITH BAND AID.
[2018-04-25] MEDS: PIPER/TAZO 3.375GM/D5W PREMIX 50 ML IV SCH ×2 (00:37→05:41)
[2018-04-25 01:10] VITALS: BP 114/68
--- NOTE | 2018-04-25 02:22 | NUR ---
SLEEPING AT THIS TIME.
[2018-04-25 04:00] VITALS: BP 124/64
[2018-04-25] MEDS: KETOROLAC 30 MG/ML VIAL IM PRN (05:47)
--- NOTE | 2018-04-25 06:48 | NUR ---
PT. SLEPT WELL THIS SHIFT. MEDICATED WITH PRN PAIN RELIEVER X 2 THIS SHIFT. ABLE TO STAND AND GET OUT OF BED AND SIT ON A CHAIR. VERBALIZES SIMPLE NEEDS WELL. USES CALL LIGHT AT ALL TIMES. NEEDS MET. NO COMPLAINTS DONE.
--- NOTE | 2018-04-25 07:28 | NUR ---
ENDORSED TO THE NEXT RN FOR CONTINUITY OF CARE. SLEEPING AT THIS TIME. WAKES UP EASILY WHEN TOUCHED. VERBALIZING WELL.
--- NOTE | 2018-04-25 07:29 | NUR ---
REPORT RECEIVED FROM TRACK REPAIRER NURSE, PT SLEEPING QUIETLY IN NAD, RESP EVEN UNLABORED ON 2L OXY NC, POC REVIEWED, NO IMMEDIATE NEEDS AT THIS TIME, ALL SAFETY MEASURES IN PLACE, WILL CONTINUE TO MONITOR.
[2018-04-25 08:00] VITALS: BP 101/55
[2018-04-25] MEDS ORDERED: ASPI81CT95 PO (08:44)
[2018-04-25] MEDS ORDERED: LACT10CA PO (08:44)
[2018-04-25] MEDS ORDERED: GABA-638 PO (08:44)
[2018-04-25] MEDS ORDERED: FLO.1 PO (08:44)
[2018-04-25] MEDS: METOPROLOL 25 MG TAB PO SCH ×2 (09:00→21:47)
[2018-04-25] MEDS: GABAPENTIN 300 MG CAP PO SCH ×2 (09:07→21:47)
[2018-04-25] MEDS: FLUDROCORTISONE 0.1 MG TAB PO SCH ×2 (09:08→21:47)
[2018-04-25] MEDS: LACTOBACILLUS RHAMNOSUS GG 1 EACH CAP PO SCH (09:08)
[2018-04-25] MEDS: PARoxetine 20 MG TAB PO SCH (09:09)
[2018-04-25] MEDS: ASPIRIN 81 MG TAB.CHEW PO SCH (09:15)
[2018-04-25] MEDS: MORPHINE SULFATE 2 MG/ML SYR IVP PRN ×2 (09:33→14:54)
--- NOTE | 2018-04-25 09:36 | NUR ---
PT C/O SEVER PAIN AFTER PHYSICAL THERAPY, MORPHINE GIVEN FOR 10/10 RLE PAIN, DRESSING CHANGED PER WOUND CARE NURSE ORDER, PT JOHNNY WELL.
[2018-04-25 09:48] LABS: ANION GAP 9.8 (8-16); CREATININE 0.8 mg/dL (0.6-1.3); POTASSIUM 3.8 mmol/L (3.5-5.1)
--- NOTE | 2018-04-25 09:56 | NUR ---
RECEIVED ORDER FOR PATIENT TO GO BACK TO [facility] . I CONTACTED [facility] . WAS TOLD BY DAVID, THE AUTH FOR TRANSPORT IS [id number]. ROWENA CALLED LATER FROM [facility], THE AUTH FOR [facility] IS [id number]. I CALLED CHA FROM [facility] AND GAVE HER THE AUTHS AND SHE WILL SET UP TRANSPORT. I ALSO CONFIRMED THAT SHE RECEIVED THE MICROS AND THAT THE MICRO FOR THE LEG WAS JUST PRELIM AND WE DIDN'T HAVE THE FINAL. SHE SAID IT WAS OKAY. I INFORMED DEMETRIS SERVIN. SHE SAID PATIENT COULD GO ANYTIME..
[2018-04-25 10:03] LABS: HEMATOCRIT 35.5 % (36-48); HEMOGLOBIN 11.6 g/dL (12.0-16.0); RED BLOOD CELL COUNT(AUTO) 3.92 MIL/uL (4.20-5.40); WHITE BLOOD COUNT (AUTO) 4.1 K/uL (4.8-10.8)
[2018-04-25 10:04] LABS: MEAN CORPUSCULAR HEMOGLOBIN 30 pg (27-31); MEAN CORPUSCULAR HGB CONC 33 g/dL (33-37); MEAN CORPUSCULAR VOLUME 90.4 fL (80-94); NEUTROPHILS % (AUTO) 63.1 % (42.2-75.2)
[2018-04-25 10:05] LABS: BASOPHILS % (AUTO) 0.1 % (0.0-2.0); LYMPHOCYTES # (AUTO) 1.1 K/uL (2.5-16.5); LYMPHOCYTES % (AUTO) 26.8 % (20.5-51.1); MONOCYTES # (AUTO) 0.4 K/uL (0.8-1.0); NEUTROPHILS # (AUTO) 2.6 K/uL (1.8-7.7)
[2018-04-25 10:06] LABS: PLATELET COUNT (AUTO) 16 K/uL (140-450)
--- NOTE | 2018-04-25 10:22 | NUR ---
DR CRUZ AT BEDSIDE, POC DISCUSSED, PT SMILING AND AGREEABLE, TRANSFER TO [facility] ON HOLD AT THIS TIME DUE TO LOW PLATELETS 16, RAMIRO CONDE MADE AWARE.
[2018-04-25] MEDS: VANCOMYCIN 1GM/DEXT 5% PREMIX 200 ML IV SCH (10:47)
[2018-04-25 12:00] VITALS: BP 113/63
[2018-04-25] MEDS: THERAHONEY GEL 42.5 GM TP SCH (13:00)
[2018-04-25] MEDS: FOAM DRESSING TP SCH (13:00)
[2018-04-25] MEDS: HYDRAGUARD CREAM TP SCH (13:00)
--- NOTE | 2018-04-25 13:23 | NUR ---
PT VERY ANGRY AFTER BLOOD DRAW, SCREAMING DEMANDING TO SEE A DOCTOR, "WHO'S ORDERING ALL THESE BLOOD TEST!!", SCREAMS TO THE NURSE "I'M NOT TALKING TO YOU!, I NEED TO TALK TO THE DOCTOR!" DR CRUZ MADE AWARE.
[2018-04-25 13:57] LABS: HEMATOCRIT 35.2 % (36-48); HEMOGLOBIN 11.5 g/dL (12.0-16.0); MEAN CORPUSCULAR HEMOGLOBIN 30 pg (27-31); MEAN CORPUSCULAR HGB CONC 33 g/dL (33-37); RED BLOOD CELL COUNT(AUTO) 3.87 MIL/uL (4.20-5.40); RED CELL DISTRIBUTION WIDTH 13.7 % (11.6-13.7); WHITE BLOOD COUNT (AUTO) 3.4 K/uL (4.8-10.8)
[2018-04-25 14:00] LABS: LYMPHOCYTES % (AUTO) 23.6 % (20.5-51.1); NEUTROPHILS % (AUTO) 69.5 % (42.2-75.2); PLATELET COUNT (AUTO) 18 K/uL (140-450)
[2018-04-25 14:01] LABS: BASOPHILS % (AUTO) 0.3 % (0.0-2.0); LYMPHOCYTES # (AUTO) 0.8 K/uL (2.5-16.5); MONOCYTES # (AUTO) 0.2 K/uL (0.8-1.0); MONOCYTES % (AUTO) 6.6 % (1.7-9.3); NEUTROPHILS # (AUTO) 2.4 K/uL (1.8-7.7)
--- NOTE | 2018-04-25 15:05 | NUR ---
DISCHARGE HELD FOR TODAY. I FAXED NEW ORDER FOR PATIENT TO GO TO [facility] TOMORROW TO [facility] AND INFORMED CHA. I ALSO CALLED [facility] AND SPOKE WITH DAVID [phone] AND INFORMED HER OF THE CHANGE THAT PATIENT NEEDS TRANSFUSION OF PLATELETS AND WILL BE GOING TOMORROW TO [facility] ON LEVAQU[place] IG DAILY FOR 7 DAYS.
[2018-04-25] MEDS: NACL 0.9% 1,000 ML IV SCH (15:20)
[2018-04-25 16:00] VITALS: BP 108/68
--- NOTE | 2018-04-25 16:30 | NUR ---
DR CRUZ AT BEDSIDE TO DISCUSS PLATELET TRANSFUSION, PT SIGNED CONSENT
[2018-04-25] MEDS: LEVOFLOXACIN 750 MG/D5W PREMIX 150 ML IV SCH (16:54)
--- NOTE | 2018-04-25 17:03 | NUR ---
PT SITTING UP CHATTING WITH ROOMMATE, APPEARS COMFORTABLE, LEVAQUIN STARTED ORDERED, WILL CONTINUE TO MONITOR.
--- NOTE | 2018-04-25 19:21 | NUR ---
REPORT GIVEN TO SNAP ATTACHER NURSE, PT SITTING UP IN NAD.
--- NOTE | 2018-04-25 19:22 | NUR ---
RECEIVED REPORT FROM DAY SHIFT NURSE. PT LYING IN BED, AWAKE. NO C/O PAIN OR SOB. ON ROOM AIR. IV TO LEFT FA #22G, NS AT 60 ML/HR AND RIGHT FA #22G, PATENT AND INTACT. HOLT CATH IN PLACE DRAINING CLEAR YELLOW URINE. DISCUSSED PLAN OF CAR, PT VERBALIZED UNDERSTANDING. SAFETY PRECAUTION IN PLACE. CALL LIGHT WITHIN REACH.
[2018-04-25 20:00] VITALS: BP 138/62
--- NOTE | 2018-04-25 20:30 | NUR ---
ASSISTED PT TO BEDSIDE COMMODE AND BACK TO BED. NO C/O PAIN OR SOB. PT KEPT DRY AND COMFORTABLE.
--- NOTE | 2018-04-25 20:50 | NUR ---
STARTED PLATELET TRANSFUSION, 1 UNIT. V/S CHECKED, WNL.
--- NOTE | 2018-04-25 21:30 | NUR ---
BLOOD TRANSFUSION ON GOING. NO C/O PAIN OR SOB. VS WITHIN NORMAL LIMITS. ALL NEEDS MET AT THIS TIME.
[2018-04-25] MEDS: PHENYTOIN 100 MG CAPER PO SCH (21:47)
[2018-04-25] MEDS: MONTELUKAST SODIUM 10 MG TAB PO SCH (21:48)
--- NOTE | 2018-04-25 22:25 | NUR ---
BLOOD TRANSFUSION DONE. NO C/O PAIN. NO RESP DISTRESS.
--- NOTE | 2018-04-25 23:40 | NUR ---
ENDORSED PT TO OTHER CARGO SERVICES COORDINATOR NURSE. NO C/O PAIN OR SOB. PT IN STABLE CONDITION.
--- NOTE | 2018-04-25 23:49 | NUR ---
RECEIVED PT FROM OTHER [facility] SHIFT NURSE. PT BEEN HAVING A CONVERSATION W/ DR. BARRAGAN WELL NURSE TO HOW SHE WANTS DR. CORDOVA (HER PCP) AND NOT PRESENT REFUSED TO UNDERSTAND DESPITE EXPLANATION.SHE CALLED TRANSCRIBER TO REPORT THAT SHE WANTS TO TALK ADMINISTRATION. CHARGE NURSE TALKED TO TRANSCRIBER. WILL CONTINUE TO MONITOR
--- NOTE | 2018-04-25 23:50 | NUR ---
PT SCREAMING AND AGITATED THAT SHE WANTS HER PCP. AND THAT SHE NEEDS ANTIBIOTIC. EXPLAINED THAT THE ORDER FOR AB WAS Q 24 HRS. BUT PT INSISTED THAT SHE WANTS DIFFERENT FREQUENCY AND TO INFUSE TO HER MORE OFTEN. DR. BARRAGAN AWARE AND INFORMED.
[2018-04-26] VITALS: BP 136/65
[2018-04-26 00:18] LABS: BASOPHILS % (AUTO) 0.1 % (0.0-2.0); HEMATOCRIT 36.7 % (36-48); LYMPHOCYTES # (AUTO) 0.8 K/uL (2.5-16.5); LYMPHOCYTES % (AUTO) 9.4 % (20.5-51.1); MEAN CORPUSCULAR HEMOGLOBIN 30 pg (27-31); MEAN CORPUSCULAR HGB CONC 33 g/dL (33-37); MEAN CORPUSCULAR VOLUME 90.4 fL (80-94); MONOCYTES # (AUTO) 0.9 K/uL (0.8-1.0); MONOCYTES % (AUTO) 9.8 % (1.7-9.3); NEUTROPHILS # (AUTO) 7.1 K/uL (1.8-7.7); NEUTROPHILS % (AUTO) 80.7 % (42.2-75.2); RED BLOOD CELL COUNT(AUTO) 4.06 MIL/uL (4.20-5.40); RED CELL DISTRIBUTION WIDTH 13.8 % (11.6-13.7); WHITE BLOOD COUNT (AUTO) 8.9 K/uL (4.8-10.8)
[2018-04-26] MEDS: KETOROLAC 30 MG/ML VIAL IM PRN ×3 (00:30→16:28)
[2018-04-26 00:51] LABS: PLATELET COUNT (AUTO) 6 K/uL (140-450)
[2018-04-26] MEDS: HYDRAGUARD CREAM TP SCH ×2 (01:00→13:13)
[2018-04-26 01:31] LABS: BASOPHILS % (AUTO) 0.1 % (0.0-2.0); HEMATOCRIT 35.7 % (36-48); HEMOGLOBIN 11.7 g/dL (12.0-16.0); LYMPHOCYTES # (AUTO) 0.9 K/uL (2.5-16.5); LYMPHOCYTES % (AUTO) 11.1 % (20.5-51.1); MEAN CORPUSCULAR HEMOGLOBIN 30 pg (27-31); MEAN CORPUSCULAR HGB CONC 33 g/dL (33-37); MEAN CORPUSCULAR VOLUME 90.1 fL (80-94); MONOCYTES # (AUTO) 0.9 K/uL (0.8-1.0); MONOCYTES % (AUTO) 11.4 % (1.7-9.3); NEUTROPHILS # (AUTO) 6.1 K/uL (1.8-7.7); NEUTROPHILS % (AUTO) 77.4 % (42.2-75.2); RED BLOOD CELL COUNT(AUTO) 3.96 MIL/uL (4.20-5.40); RED CELL DISTRIBUTION WIDTH 13.6 % (11.6-13.7); WHITE BLOOD COUNT (AUTO) 7.8 K/uL (4.8-10.8)
--- NOTE | 2018-04-26 02:00 | NUR ---
RELAYED PLATELET RESULT, [address] YUNG ZELAYA.
[2018-04-26 02:09] LABS: PROTHROMBIN TIME 10.9 secs (10.8-13.4)
[2018-04-26 02:13] LABS: PLATELET COUNT (AUTO) 6 K/uL (140-450)
[2018-04-26 04:00] VITALS: BP 130/65
--- NOTE | 2018-04-26 05:30 | NUR ---
STARTED 2ND UNIT OF PLATELET APHERESIS TOTAL OF 613ML. STILL ONGOING INFUSION.
[2018-04-26] MEDS ORDERED: DEXAMETHASONE 4 MG/ML VIAL IVP SCH (06:30)
--- NOTE | 2018-04-26 07:44 | NUR ---
ENDORSED TO AM SHIFT NURSE. PT SLEEPING. WITH ONGOING PLATELET INFUSION VIA LEFT UPPER ARM G 22. PATENT.
--- NOTE | 2018-04-26 07:45 | NUR ---
PATIENT WAS SLEEPING COMFORTABLY, EASILY AROUSABLY BY NAME. RESPIRATION EVEN, UNLABOR ON ROOM AIR. SKIN DRY AND WARM. IVS PATENT AND INTACT, INFUSING PLATELET. DENIED PAIN, SOB AT THIS TIME. PLAN OF CARE WAS DISCUSSED WITH PATIENT. BED AT LOW POSITION, SIDE RAILS UP. CALL LIGHT WITHIN REACH
[2018-04-26 08:00] VITALS: BP 96/58
--- NOTE | 2018-04-26 08:00 | NUR ---
2ND BAG OF PLATELET WAS HUNG, IV TUBING WAS CHANGED.
[2018-04-26] MEDS: ASPIRIN 81 MG TAB.CHEW PO SCH (08:41)
[2018-04-26] MEDS: GABAPENTIN 300 MG CAP PO SCH ×2 (08:50→20:59)
[2018-04-26] MEDS: LACTOBACILLUS RHAMNOSUS GG 1 EACH CAP PO SCH (08:50)
[2018-04-26] MEDS: PARoxetine 20 MG TAB PO SCH (08:50)
[2018-04-26] MEDS: METOPROLOL 25 MG TAB PO SCH ×2 (08:51→20:59)
[2018-04-26] MEDS: FLUDROCORTISONE 0.1 MG TAB PO SCH ×2 (08:51→20:58)
--- NOTE | 2018-04-26 09:00 | NUR ---
PLATELET 6, ASPIRIN WAS HELD.
--- NOTE | 2018-04-26 09:30 | NUR ---
PLATELET TRANSFUSION WAS FINISHED. NO SIGNS OF ADVERSE REACTION WAS SEEN. PATIENT IS STABLE AT THIS TIME. DR. QUINN WAS MADE AWARE
[2018-04-26] MEDS: CALCIUM CARB/VIT-D 500 MG/200 IU 1 TAB PO SCH (09:36)
--- NOTE | 2018-04-26 10:47 | NUR ---
PATIENT COMPLAINED OF PAIN AND BURNING SENSATION ON THE RIGHT LEG. MED WAS GIVEN PER ORDER. WOUND DRESSING WAS CHANGED, PATIENT TOLERATED WELL
[2018-04-26 11:36] LABS: BASOPHILS % (AUTO) 0.1 % (0.0-2.0); HEMATOCRIT 32.7 % (36-48); HEMOGLOBIN 10.7 g/dL (12.0-16.0); LYMPHOCYTES # (AUTO) 0.8 K/uL (2.5-16.5); MEAN CORPUSCULAR HEMOGLOBIN 30 pg (27-31); MEAN CORPUSCULAR HGB CONC 33 g/dL (33-37); MONOCYTES # (AUTO) 0.5 K/uL (0.8-1.0); MONOCYTES % (AUTO) 8.1 % (1.7-9.3); NEUTROPHILS # (AUTO) 5.1 K/uL (1.8-7.7); RED CELL DISTRIBUTION WIDTH 14.1 % (11.6-13.7); WHITE BLOOD COUNT (AUTO) 6.4 K/uL (4.8-10.8)
[2018-04-26 11:51] LABS: PLATELET COUNT (AUTO) 20 K/uL (140-450)
--- NOTE | 2018-04-26 11:55 | NUR ---
PATIENT WAS RESTING COMFORTABLY. RESPIRATION EVEN, UNLABOR ON 2L NC. IV PATENT AND INTACT. DENIED PAIN AT THIS TIME. NO DISTRESS NOTED. CALL LIGHT WITHIN REACH
[2018-04-26 12:00] VITALS: BP 90/60
[2018-04-26 12:10] LABS: LYMPHOCYTES % (AUTO) 11.9 % (20.5-51.1); NEUTROPHILS % (AUTO) 79.9 % (42.2-75.2)
[2018-04-26 12:24] LABS: ANION GAP 12.3 (8-16); CARBON DIOXIDE 28.2 mmol/L (21-32); CREATININE 0.8 mg/dL (0.6-1.3); POTASSIUM 4.5 mmol/L (3.5-5.1)
--- NOTE | 2018-04-26 13:00 | NUR ---
Loom Tuner's Notes: Roopa from [facility] contacted these advertising copy writer to check and follow up on Patient's discharge. I contacted academic support assistant Blossom to ask on Patient's possible D/C status, Per Charge nurse patient will not be ready for discharge today. Possibly ready for D/C on Saturday. I call back Roopa to provide update on patients possible D/C on Saturday. She thanked me and ended the call.
[2018-04-26] MEDS: FOAM DRESSING TP SCH (13:12)
[2018-04-26] MEDS: THERAHONEY GEL 42.5 GM TP SCH (13:13)
[2018-04-26] MEDS: NACL 0.9% 1,000 ML IV SCH (13:14)
--- NOTE | 2018-04-26 14:08 | NUR ---
PATIENT WAS SLEEPING COMFORTABLY. RESPIRATION EVEN, UNLABOR ON 2L NC. NO DISTRESS NOTED AT THIS TIME
[2018-04-26] MEDS: LEVOFLOXACIN 750 MG/D5W PREMIX 150 ML IV SCH (15:14)
[2018-04-26 16:00] VITALS: BP 112/64
--- NOTE | 2018-04-26 16:00 | NUR ---
PATIENT AWAKE, ALERT. RESPIRATION EVEN, UNLABOR ON ROOM AIR. IV PATENT AND INTACT. COMPLAINED OF LEG PAIN /, WILL MEDICATE PER ORDER.
[2018-04-26] MEDS: ACETAMINOPHEN 325 MG TAB PO SCH ×2 (16:28→20:00)
--- NOTE | 2018-04-26 17:15 | NUR ---
1 UNIT OF PLATELET WAS STARTED. PATIENT IS STABLE AT THIS TIME
--- NOTE | 2018-04-26 18:15 | NUR ---
1 UNIT OF PLATELET WAS COMPLETED. WILL HOLD FOR 2ND UNIT TILL CBC RESULT COME BACK PER DR. QUINN Addendum: 04/26/18 at 1840 by Mora Michele RN NO SIGNS OF REACTION SEEN. PATIENT IS STABLE AT THIS TIME
[2018-04-26 18:56] LABS: BASOPHILS % (AUTO) 0.1 % (0.0-2.0); HEMATOCRIT 32.8 % (36-48); HEMOGLOBIN 10.7 g/dL (12.0-16.0); LYMPHOCYTES # (AUTO) 1.1 K/uL (2.5-16.5); LYMPHOCYTES % (AUTO) 15.7 % (20.5-51.1); MEAN CORPUSCULAR HEMOGLOBIN 30 pg (27-31); MEAN CORPUSCULAR HGB CONC 33 g/dL (33-37); MEAN CORPUSCULAR VOLUME 91.1 fL (80-94); MONOCYTES # (AUTO) 0.6 K/uL (0.8-1.0); MONOCYTES % (AUTO) 8.2 % (1.7-9.3); NEUTROPHILS # (AUTO) 5.4 K/uL (1.8-7.7); PLATELET COUNT (AUTO) 31 K/uL (140-450); RED CELL DISTRIBUTION WIDTH 13.5 % (11.6-13.7); WHITE BLOOD COUNT (AUTO) 7.1 K/uL (4.8-10.8)
--- NOTE | 2018-04-26 19:22 | NUR ---
ENDORSEMENT GIVEN TO BIOINFORMATICS ASSISTANT NURSE. PATIENT IS STABLE AT THIS TIME
--- NOTE | 2018-04-26 19:23 | NUR ---
RECEIVED PT IN STABLE CONDITION FROM AM NURSE. AWAKE,ALERT AND ORIENTED X4. ON TELE MONITOR. WITH NO DISCOMFORT NOR PAIN NOTED AT THIS TIME. ON TELE MONITOR. BEDREST BUT CAN BE UP TO BSC WITH ASSISTANCE. HAS IVF INFUSING WELL ON THE LT UPPER ARM G#22. CLEAR AND PATENT. ANOTHER IV ACCESS ON THE RT FA G#22. ,HL. HOLT CATHETER TO GRAVITY, DRAINING CLEAR YELLOW URINE. PLAN OF CARE DISCUSSED AND PT VERBALIZED UNDERSTANDING. BED ON LOWEST POSITION. FREQUENT ROUNDS NEEDED. CALL LIGHT PLACED WITHIN EASY REACH. WILL CONTINUE TO MONITOR.
[2018-04-26 19:55] VITALS: BP 123/61
--- NOTE | 2018-04-26 20:00 | NUR ---
HL ON LT FA #22 INFILTRATED. DISCONTINUED.
[2018-04-26] MEDS: MORPHINE SULFATE 2 MG/ML SYR IVP PRN (20:01)
--- NOTE | 2018-04-26 20:10 | NUR ---
PLATELETS COUNT 31. STILL LOW . TALKED TO DR. ELLINGTON,RESIDENT MD ,MADE HER AWARE , SHE SAID SHE WILL TAKE CARE OF IT.
[2018-04-26] MEDS: ALBUTEROL SULFATE/IPRATROPIU 3 ML SOL IH PRN (20:36)
[2018-04-26] MEDS: PHENYTOIN 100 MG CAPER PO SCH (20:58)
[2018-04-26] MEDS: MONTELUKAST SODIUM 10 MG TAB PO SCH (20:59)
--- NOTE | 2018-04-26 21:10 | NUR ---
US TECH CALLED FOR PT WILL HAVE US ABDOMEN COMPLETE BELKIS . HE SAID TO KEEP PT NPO AFTER MN. WILL INSTRUCT PT.
--- NOTE | 2018-04-26 22:27 | NUR ---
BLOOD BANK CALLED AND SAID THAT PLATELETS ON HOLD WILL AT [place]. DR. ELLINGTON MADE AWARE ABOUT THIS.
--- NOTE | 2018-04-26 22:44 | NUR ---
CALLED BLOOD BANK AND TALKED TO ROB, MADE AWARE THAT PT IS NOT GOING TO GET ANOTHER PLATELETS TONIGHT PER DR. ELLINGTON, RESIDENT .
[2018-04-27 00:20] VITALS: BP 105/49
[2018-04-27] MEDS: ACETAMINOPHEN 325 MG TAB PO SCH (00:21)
[2018-04-27] MEDS: HYDRAGUARD CREAM TP SCH ×2 (01:00→13:47)
--- NOTE | 2018-04-27 02:00 | NUR ---
PT ASLEEP. NO S/S OF ANY DISCOMFORT NOR PAIN NOTED.
[2018-04-27 03:10] VITALS: BP 106/51
--- NOTE | 2018-04-27 03:50 | NUR ---
IV ACCESS ON THE LT UPPER ARM G322 INFILTRATED. NEW IV ACCESS STARTED ON THE RT FA G#22. CLEAR AND PATENT.
--- NOTE | 2018-04-27 05:00 | NUR ---
PT KEPT NPO SINCE MN FOR US ABDOMEN COMPLETE. PT AWARE ABOUT THIS TEST.
--- NOTE | 2018-04-27 06:55 | NUR ---
US ABDOMEN DONE AT BEDSIDE. WILL ENDORSE TO AM NURSE TO FOLLOW UP RESULT.
--- NOTE | 2018-04-27 07:18 | NUR ---
ENDORSED PT IN STABLE CONDITION TO AM NURSE.
[2018-04-27 07:27] LABS: BASOPHILS % (AUTO) 0.1 % (0.0-2.0); HEMATOCRIT 33.3 % (36-48); HEMOGLOBIN 10.7 g/dL (12.0-16.0); MEAN CORPUSCULAR HEMOGLOBIN 30 pg (27-31); MEAN CORPUSCULAR HGB CONC 32 g/dL (33-37); MEAN CORPUSCULAR VOLUME 92.3 fL (80-94); MONOCYTES # (AUTO) 0.8 K/uL (0.8-1.0); NEUTROPHILS # (AUTO) 6.2 K/uL (1.8-7.7); PLATELET COUNT (AUTO) 22 K/uL (140-450); RED BLOOD CELL COUNT(AUTO) 3.61 MIL/uL (4.20-5.40); RED CELL DISTRIBUTION WIDTH 13.9 % (11.6-13.7)
[2018-04-27 08:00] VITALS: BP 105/56
--- NOTE | 2018-04-27 08:00 | NUR ---
PATIENT WAS AWAKE, ALERT. RESPIRATION EVEN, UNLABOR ON 2L NC. SKIN DRY AND WARM. IV PATENT AND INTACT. COMPLAINED OF RIGHT LEG PAIN 7/10, WILL MEDICATE PER ORDER. HOLT IS DRAINING CLEAR YELLOW URINE. PLAN OF CARE WAS DISCUSSED WITH PATIENT. BED AT LOW POSITION, SIDE RAILS UP. CALL LIGHT WITHIN REACH.
[2018-04-27 08:19] LABS: ANION GAP 13.9 (8-16); CARBON DIOXIDE 28.4 mmol/L (21-32); CREATININE 0.8 mg/dL (0.6-1.3); POTASSIUM 4.3 mmol/L (3.5-5.1)
[2018-04-27 08:27] LABS: MAGNESIUM 2.4 mg/dL (1.8-2.4); PHOSPHORUS 4.8 mg/dL (2.5-4.9)
[2018-04-27] MEDS: ASPIRIN 81 MG TAB.CHEW PO SCH (08:27)
[2018-04-27 08:31] LABS: LYMPHOCYTES % (AUTO) 12.7 % (20.5-51.1); MONOCYTES % (AUTO) 9.6 % (1.7-9.3); NEUTROPHILS % (AUTO) 77.6 % (42.2-75.2)
--- NOTE | 2018-04-27 09:00 | NUR ---
PLATELET COUNT 22, ASPIRIN WAS HELD
[2018-04-27] MEDS ORDERED: LACT1.4C PO (09:08)
[2018-04-27] MEDS ORDERED: [UNRECOGNIZED DRUG - CODE] IV (09:08)
[2018-04-27] MEDS ORDERED: GABA300C PO (09:12)
[2018-04-27] MEDS ORDERED: FLO.1 PO (09:12)
[2018-04-27] MEDS ORDERED: Foam Dressing TP (09:12)
[2018-04-27] MEDS ORDERED: Therahoney Gel TP (09:12)
[2018-04-27] MEDS: CALCIUM CARB/VIT-D 500 MG/200 IU 1 TAB PO SCH (09:18)
[2018-04-27] MEDS: GABAPENTIN 300 MG CAP PO SCH (09:18)
[2018-04-27] MEDS: LACTOBACILLUS RHAMNOSUS GG 1 EACH CAP PO SCH (09:18)
[2018-04-27] MEDS: PARoxetine 20 MG TAB PO SCH (09:18)
[2018-04-27] MEDS: FLUDROCORTISONE 0.1 MG TAB PO SCH (09:18)
[2018-04-27] MEDS: METOPROLOL 25 MG TAB PO SCH (09:19)
[2018-04-27] MEDS: MORPHINE SULFATE 2 MG/ML SYR IVP PRN ×2 (10:06→15:27)
--- NOTE | 2018-04-27 10:24 | NUR ---
CALLED [facility] FOR TRANSPORT STATED SHE IS ALREADY ON WILL CALL, [employer] JOINTER TIME IS 1730. NURSE UMBERTO BERNSTEIN.
--- NOTE | 2018-04-27 10:38 | NUR ---
SPOKE AND INFORMED ORQUIDEA, ADMISSION AT [facility], PATIENT IS OK TO BE DISCHARGE BACK TO [facility] TODAY. ORQUIDEA STATED PATIENT HAS AUTHORIZATION AND IS CLEARED TO GO BACK TO ROOM 223A UNDER DR. CORDOVA. REPORT WAS GIVEN KYLIE SUE.
--- NOTE | 2018-04-27 11:12 | NUR ---
WOUND CARE WAS GIVEN. WOUND DRESSING WAS CHANGED. PATIENT TOLERATED WELL
[2018-04-27 12:00] VITALS: BP 114/57
--- NOTE | 2018-04-27 12:30 | NUR ---
DISCHARGE INSTRUCTION WAS GIVEN AND EXPLAINED TO THE PATIENT. PATIENT VERBALIZED UNDERSTANDING. WOUND PICTURE WAS TAKEN.
--- NOTE | 2018-04-27 12:42 | NUR ---
CALLED AND INFORMED SISTER, ALBERTO, THAT PATIENT IS TRANSFERRING BACK TO [facility] TODAY WITH ANTIBIOTIC.
[2018-04-27] MEDS: THERAHONEY GEL 42.5 GM TP SCH (13:47)
[2018-04-27] MEDS: FOAM DRESSING TP SCH (13:47)
[2018-04-27] MEDS: NACL 0.9% 1,000 ML IV SCH (13:48)
--- NOTE | 2018-04-27 14:00 | NUR ---
PATIENT WAS SLEEPING COMFORTABLY. RESPIRATION EVEN, UNLABOR ON 2L NC. NO DISTRESS NOTED AT THIS TIME
[2018-04-27] MEDS: LEVOFLOXACIN 750 MG/D5W PREMIX 150 ML IV SCH (15:27)
[2018-04-27] MEDS: INFLUENZA VIRUS VACCINE QUAD 0.5 ML SYR IMVAC PRN ×2 (15:28→15:52)
--- NOTE | 2018-04-27 15:45 | NUR ---
PATIENT WAS AWAKE, ALERT. RESPIRATION EVEN, UNLABOR ON 2L NC. COMPLAINED OF LEG PAIN 7/10, MED WAS GIVEN PER ORDER. HOLT WAS REMOVED PER ORDER. 8CC WAS DRAWN OF CUFF, 700 ML OF CLEAR YELLOW URINE. PATIENT TOLERATED WELL. FLU VACCINE WAS GIVEN PER ORDER
[2018-04-27 16:00] VITALS: BP 108/49
--- NOTE | 2018-04-27 16:15 | NUR ---
PATIENT WAS ASSISTED TO COMMODE. PATIENT HAD URINATION AND BM
--- NOTE | 2018-04-27 18:47 | NUR ---
REPORT WAS GIVEN TO EMT AT BEDSIDE. ARCHEOLOGIST WAS REMOVED. IV PATENT AND INTACT. PATIENT IS STABLE AT THIS TIME
[2018-04-28 10:52] LABS: MYOGLOBIN, SERUM <21 ng/mL (25-58)
[2018-04-30] MEDS ORDERED: INTERDRY CLOTH TP SCH (06:00)
== END 2018-04-27 18:30 | DRG 872 ==
LOC: MED 18:04 → MTU 21:37
PROVIDERS: ADMIT General Practice; ATTEND General Practice
PROC: 30233R1 Transfusion of Nonautologous Platelets into Peripheral Vein, Percutaneous Approach (ICD-10-PCS; principal; 2018-04-25)
PROC: 3E02340 Introduction of Influenza Vaccine into Muscle, Percutaneous Approach (ICD-10-PCS; 2018-04-27)
DX: A41.9 Sepsis, unspecified organism (principal); L03.115 Cellulitis of right lower limb; E44.0 Moderate protein-calorie malnutrition; I43 Cardiomyopathy in diseases classified elsewhere; R09.89 Other specified symptoms and signs involving the circulatory and respiratory systems; G40.909 Epilepsy, unspecified, not intractable, without status epilepticus; I73.9 Peripheral vascular disease, unspecified; J44.9 Chronic obstructive pulmonary disease, unspecified; R73.9 Hyperglycemia, unspecified; G62.9 Polyneuropathy, unspecified; I50.9 Heart failure, unspecified; I11.0 Hypertensive heart disease with heart failure; I49.5 Sick sinus syndrome; I48.91 Unspecified atrial fibrillation; F32.9 Major depressive disorder, single episode, unspecified; Z96.651 Presence of right artificial knee joint; I95.1 Orthostatic hypotension; E78.5 Hyperlipidemia, unspecified; E83.51 Hypocalcemia; E87.8 Other disorders of electrolyte and fluid balance, not elsewhere classified; D75.82 Heparin induced thrombocytopenia (HIT); T45.515A Adverse effect of anticoagulants, initial encounter; F43.9 Reaction to severe stress, unspecified; Z68.32 Body mass index [BMI] 32.0-32.9, adult; Z23 Encounter for immunization; Z86.73 Personal history of transient ischemic attack (TIA), and cerebral infarction without residual deficits; Z79.82 Long term (current) use of aspirin; Z79.899 Other long term (current) drug therapy; Z85.038 Personal history of other malignant neoplasm of large intestine; Z95.0 Presence of cardiac pacemaker; I25.2 Old myocardial infarction; Z98.49 Cataract extraction status, unspecified eye; Y92.89 Other specified places as the place of occurrence of the external cause
CPT/HCPCS: 36415; 36600; 51702; 71045; 73590; 76700; 76881; 80048; 80053; 80185; 80202; 80305; 81003; 82009; 82550; 82553; 82803; 82948; 83036; 83605; 83735; 83874; 83880; 84100; 84436; 84439; 84443; 84479; 84484; 84550; 85025; 85379; 85384; 85610; 85730; 86900; 86901; 87040; 87070; 87086; 87186; 90658; 93005; 93970; 94640; 96365; 97116; 99285; J1100; J1644; J1885; J1956; J2270; J2405; J2543; J3370; J7030; J7060; J7620; P9035; Q0092; Q0163

== ENCOUNTER 2018-09-19 13:52 | Inpatient (IN) | payer OTHER ==
[~2018-09-19] VITALS: Ht 149.9 cm; Wt 131.5 kg
[~2018-09-19 13:52] MED LIST changes: -ASPI-1173 PO; +DICL100G5 TP; +DOCU-299 PO; +Foam Dressing TP; +LACT1.4C PO; -LACT10CA1 PO; -ROC2I IV; +Therahoney Gel TP; +[UNRECOGNIZED DRUG - CODE] IV
[2018-09-19 13:57] VITALS: BP 127/64
--- NOTE | 2018-09-19 14:00 | NUR ---
68 Y FEMALE BIBA FROM [facility] C/O RT LEG PAIN RADIATING TO HIP. PAIN 10/10 DESCRIBED SEVERE AND BURNING. +REDNESS, +SWELLING, HOT TO TOUCH, PALPABLE PEDAL PULSE. PT ON 2 L NC. VSS AT THIS TIME. AA0X4. BED IS DOWN, LOCKED, BED RAIL X 1, ERMD TO SEE PT. PMH-CELLULITIS, HTN, PACEMAKER, SEIZURE, HEART ATTACK, STROKE, COPD, OBESITY,PYELONEPHRITIS MEDS- SEE MED RECON OR PT CHART
--- NOTE | 2018-09-19 15:10 | NUR ---
VSS AT THIS TIME, AA0X4. PT SITTING IN BED
--- NOTE | 2018-09-19 15:17 | NUR ---
DR JASON AT BEDSIDE
[2018-09-19] MEDS ORDERED: NACL 0.9% 500 ML IV SCH (15:19)
[2018-09-19] MEDS ORDERED: KETOROLAC 15 MG/ML VIAL IVP ONE (15:20)
--- NOTE | 2018-09-19 15:26 | NUR ---
RAD AT BEDSIDE
[2018-09-19] MEDS ORDERED: ceFAZolin 1,000 MG VIAL ONE ×2 (15:37→21:10)
--- NOTE | 2018-09-19 15:45 | NUR ---
# 14 FR Urinary catheter inserted utilizing sterile technique. Immediate return of urine noted. Urine sample collected and sent to lab. Pt tolerated procedure well.
[2018-09-19 15:52] LABS: BASOPHILS % (AUTO) 0.3 % (0.0-2.0); HEMATOCRIT 39.4 % (36-48); HEMOGLOBIN 12.9 g/dL (12.0-16.0); LYMPHOCYTES % (AUTO) 20.3 % (20.5-51.1); MEAN CORPUSCULAR HEMOGLOBIN 29 pg (27-31); MEAN CORPUSCULAR HGB CONC 33 g/dL (33-37); MEAN CORPUSCULAR VOLUME 89.3 fL (80-94); MONOCYTES # (AUTO) 0.4 K/uL (0.8-1.0); MONOCYTES % (AUTO) 8.3 % (1.7-9.3); NEUTROPHILS # (AUTO) 3.5 K/uL (1.8-7.7); NEUTROPHILS % (AUTO) 71.1 % (42.2-75.2); PLATELET COUNT (AUTO) 236 K/uL (140-450); RED BLOOD CELL COUNT(AUTO) 4.41 MIL/uL (4.20-5.40); RED CELL DISTRIBUTION WIDTH 15.9 % (11.6-13.7)
[2018-09-19 16:01] LABS: ANION GAP 9.5 (8-16); CARBON DIOXIDE 30.5 mmol/L (21-32); CREATININE 0.6 mg/dL (0.6-1.3)
[2018-09-19 16:05] LABS: PROTHROMBIN TIME 10.4 secs (10.8-13.4)
[2018-09-19 16:07] LABS: ALBUMIN 2.9 g/dL (3.4-5.0); TOTAL BILIRUBIN 0.2 mg/dL (0.0-1.0)
--- NOTE | 2018-09-19 16:31 | NUR ---
US AT BEDSIDE
[2018-09-19] MEDS ORDERED: ACETAMINOPHEN 325 MG TAB PO PRN (17:15)
[2018-09-19] MEDS ORDERED: LORazepam 2 MG/ML VIAL IM/IVP PRN (17:15)
[2018-09-19] MEDS ORDERED: HYDROcodone/APAP 5/325 MG 1 TAB TAB PO PRN (17:15)
[2018-09-19] MEDS ORDERED: DOCUSATE SODIUM 100 MG GELCAP PO PRN (17:15)
[2018-09-19] MEDS ORDERED: ZOLPIDEM 5 MG TAB PO PRN (17:15)
[2018-09-19] MEDS ORDERED: ONDANSETRON 4 MG/2 ML VIAL IM/IVP PRN (17:15)
--- NOTE | 2018-09-19 17:21 | NUR ---
VSS AT THIS TIME, AA0X4. PT SITTING IN BED
[2018-09-19 17:25] LABS: APPEARANCE,URINE CLEAR (CLEAR); BILIRUBIN,URINE NEGATIVE (NEGATIVE); BLOOD, URINE NEGATIVE (NEGATIVE); COLOR,URINE YELLOW (YELLOW); LEUKOCYTE ESTERASE ,URINE NEGATIVE (NEGATIVE); NITRITE, URINE NEGATIVE (NEGATIVE); PH,URINE 6.5 (5.0-9.0); UGLUCOSE NEGATIVE (NEGATIVE)
[2018-09-19 17:34] LABS: BARBITURATE, URINE NEG. ng/ml (NEG <=200); BENZODIAZEPINE, URINE NEG. ng/mL (NEG <=200); CANNABINOID, URINE NEG. ng/mL (NEG <=50); COCAINE, URINE NEG. ng/mL (NEG <=300); OPIATE, URINE NEG. ng/mL (NEG <=2000); PHENCYCLIDINE SCREEN,URINE NEG. ng/mL (NEG <=25)
--- NOTE | 2018-09-19 17:39 | NUR ---
PT SLEEPING IN BED
[2018-09-19 17:45] LABS: CHOL/HDL RATIO 2.1 (1-4.5); FREE T4 (FREE THYROXINE) 0.75 ng/dL (0.76-1.46); MAGNESIUM 2.4 mg/dL (1.8-2.4); PHOSPHORUS 3.4 mg/dL (2.5-4.9); THYROID STIMULATING HORMONE 2.28 uIU/mL (0.34-3.74)
--- NOTE | 2018-09-19 18:10 | NUR ---
Patient will be admitted to care of DR MATHIAS. Admited to [facility]. Will go to room 118A. Belongings list completed. Report to [facility] SERVIN.
--- NOTE | 2018-09-19 18:10 | NUR ---
PATIENT ARRIVED TO UNIT VIA GURNEY ACCOMPANIED ER NURSE RENO. POSITIONED PATIENT COMFORTABLY ON BED. PATIENT IS AOX4, TO NAME, PL[facility], DATE-SATURDAY AND TIME. ABLE TO COMMUNICATE APPROPRIATELY. PATIENT STATED THAT SHE HAS MINIMAL DISCOMFORT ON HER RIGHT LEG DUE TO THE CELLULITIS. RESPIRATION EVEN AND UNLABORED ON RA. NO SIGNS OF DISTRESS NOTED. IV ON L AC 22G, CLEAN AND DRY, NOT INFUSING AT THIS TIME. REDNESS ON R LOW LEG NOTED AND WARM TO TOUCH, OTHERWISE, SKIN CLEAN AND DRY. PER PATIENT, [facility], AND DUE TO HER R LEG DISCOMFORT, SHE IS UNABLE TO AMBULATE. ORIENTED PATIENT TO THE ROOM, HOW TO USE THE CALL LIGHT, LIGHT REMOTE, BED REMOTE, TV AND BATHROOM. PATIENT VERBALIZED UNDERSTANDING. DISCUSSED PLAN OF CARE WITH PATIENT AND PATIENT VERBALIZED UNDERSTANDING. VITAL SIGNS TAKEN; TEMP. 97.4, BP 116/63, PULSE 73, RR 20, COMPLAINED OF DISCOMFORT ON R LOW LEG, BUT SHE STATED IT'S TOLERABLE. MRSA NARES COLLECTED. FALL PRECAUTIONS INITIALED, SEIZURE PRECAUTION INITIALED, CONTACT PRECAUTION INITIALED. ALL SIGNS POSTED. INSTRUCTED PATIENT TO USE CALL LIGHT FOR ANY ASSISTANCE AND PATIENT WAS AWARE. BED IN LOW POSITION, AND CALL LIGHT WITHIN REACH.
[2018-09-19] MEDS: NACL 0.9% 1,000 ML IV SCH (18:17)
--- NOTE | 2018-09-19 18:21 | NUR ---
STARTED IVF PER MD ORDER. PATIENT IS RESTING AND WATCHING TV ON BED AT THIS TIME. NO SIGNS OF DISTRESS NOTED. BED ALARM ACTIVATED. BED IN LOW POSITION AND CALL LIGHT WITHIN REACH. SAFETY MEASURES IN PLACE.
--- NOTE | 2018-09-19 19:16 | NUR ---
ENDORSED PATIENT AT BEDSIDE TO BUREAU DIRECTOR NURSE FOR CONTINUITY OF CARE. PATIENT IS IN STABLE CONDITION.
--- NOTE | 2018-09-19 19:17 | NUR ---
RECEIVED BEDSIDE REPORT FROM [facility]MA SERVIN. PT IS AAOX4. ON NC 2L 02. RESPIRATIONS ARE EQUAL AND UNLABORED. PATIENT C/C R LEG PAIN. DX R LEG CELLULITIS. IV ON LAC 22G NS INFUSING PER ORDERS. PT WITH MINIMAL DRAINAGE ON LEG. WITH DRESSING ON. PT USES WALKER AT [facility]. COMING FROM [facility]. HAS SWELLING AND REDNESS ON R LEG. WARM TO TOUCH. AND VERY SENSITIVE TO TOUCH. CAP REFILL <3SEC ON GER EXTREMITIES. MRSA OBTAIN FROM [facility]. PLAN OF CARE DISCUSSED. ON CONTACT ISOLATION. CALL LIGHT WITHIN REACH. WILL CONTINUE TO MONITOR.
[2018-09-19] MEDS ORDERED: MAGNESIUM HYDROXIDE 2400 MG/30 ML UDC PO PRN (19:55)
[2018-09-19] MEDS ORDERED: traMADol 50 MG TAB PO SCH (19:55)
[2018-09-19] MEDS ORDERED: SODIUM PHOSPHATE 118 ML ENEM RC SCH (19:55)
[2018-09-19] MEDS ORDERED: BISA-213 RC (19:58)
[2018-09-19] MEDS ORDERED: LACT10SO1 PO (19:58)
[2018-09-19] MEDS ORDERED: MAGN400S60 PO (19:58)
[2018-09-19] MEDS ORDERED: NA P133E RC (19:58)
[2018-09-19] MEDS ORDERED: ASPI-1718 PO (19:58)
[2018-09-19 20:00] VITALS: BP 128/63
[2018-09-19] MEDS ORDERED: ALBUTEROL SULFATE/IPRATROPIU 3 ML SOL IH PRN (20:05)
--- NOTE | 2018-09-19 20:53 | NUR ---
PATIENTS SATS ON ROOM AIR ARE 96%. PT WANTED TO HAVE OXYGEN ON STANDBY AT 2LNC. PATIENT DID INCENTIVE SPIROMETER AT 1500CC X 5 BREATHS. PT WILL CONTINUE TO DO IT ON HER OWN. NO SOB NOTED AT THIS TIME
--- NOTE | 2018-09-19 21:06 | NUR ---
SCHEDULED MEDICATIONS ADMINISTERED. PATIENT TOLERATED WELL. VITAL SIGNS ARE WITHIN NORMAL LIMITS. PT IS GETTING US ON R LEG. WILL CONTINUE TO MONITOR.
[2018-09-19] MEDS: GABAPENTIN 300 MG CAP PO SCH (21:07)
[2018-09-19] MEDS: METOPROLOL 25 MG TAB PO SCH (21:07)
[2018-09-19] MEDS: PHENYTOIN 100 MG CAPER PO SCH (21:07)
[2018-09-19] MEDS: FLUDROCORTISONE 0.1 MG TAB PO SCH (21:07)
[2018-09-19] MEDS: MONTELUKAST SODIUM 10 MG TAB PO SCH (21:07)
[2018-09-19] MEDS: BACLOFEN 10 MG TAB PO SCH (21:08)
[2018-09-19] MEDS ORDERED: BISACODYL 10 MG SUPP RC PRN (21:15)
[2018-09-19] MEDS ORDERED: LACTULOSE 20 GM/30 ML UDC PO PRN (21:15)
[2018-09-19] MEDS: MORPHINE SULFATE 2 MG/ML SYR IVP PRN (21:19)
--- NOTE | 2018-09-19 22:10 | NUR ---
ASSISTED PATIENT TO BEDSIDE COMMODE WITH ASSISTANCE OF ARNOLD JERNIGAN. PATIENT COMPLAIN OF PAIN WITH PUT WEIGHT ON R LEG. PT TOLERATED WELL. WILL CONTINUE TO MONITOR. SAFETY MEASURES ARE IN PLACE.
[2018-09-20] VITALS: BP 109/64
--- NOTE | 2018-09-20 | NUR ---
VITAL SIGNS ARE WITHIN NORMAL LIMITS. ASSISTED PATIENT TO BEDPAN. PT TOLERATED WELL. ALL NEEDS MET AT THIS TIME. CALL LIGHT WITHIN REACH.
--- NOTE | 2018-09-20 02:31 | NUR ---
PATIENT IS SLEEPING. RESPIRATIONS ARE EQUAL AND UNLABORED. SAFETY MEASURES ARE IN PLACE. CALL LIGHT WITHIN REACH.
[2018-09-20 04:00] VITALS: BP 115/68
--- NOTE | 2018-09-20 04:00 | NUR ---
VITAL SIGNS ARE STABLE. ASSISTED PATIENT TO USE BEDPAN. PT TOLERATED WELL. ALL NEEDS MET AT THIS TIME. CALL LIGHT WITHIN REACH.
[2018-09-20] MEDS: MORPHINE SULFATE 2 MG/ML SYR IVP PRN ×2 (05:24→09:30)
[2018-09-20] MEDS ORDERED: ceFAZolin 1,000 MG VIAL ONE (05:27)
--- NOTE | 2018-09-20 07:20 | NUR ---
GAVE BEDSIDE REPORT TO DAY SHIFT RN. PT ENDORSED IN STABLE CONDITION.
--- NOTE | 2018-09-20 07:30 | NUR ---
RECEIVED HAND OFF REPORT FROM RESEARCH ADMINISTRATOR RN. PT IS ASLEEP IN BED ALL SAFETY MEASURES ARE IN PLACE. WILL CONTINUE TO MONITOR.
[2018-09-20 07:37] LABS: BASOPHILS % (AUTO) 0.4 % (0.0-2.0); HEMATOCRIT 37.8 % (36-48); HEMOGLOBIN 12.5 g/dL (12.0-16.0); LYMPHOCYTES # (AUTO) 1.1 K/uL (2.5-16.5); LYMPHOCYTES % (AUTO) 23.8 % (20.5-51.1); MEAN CORPUSCULAR HEMOGLOBIN 30 pg (27-31); MEAN CORPUSCULAR HGB CONC 33 g/dL (33-37); MEAN CORPUSCULAR VOLUME 89.7 fL (80-94); MONOCYTES # (AUTO) 0.3 K/uL (0.8-1.0); MONOCYTES % (AUTO) 6.5 % (1.7-9.3); NEUTROPHILS # (AUTO) 3.2 K/uL (1.8-7.7); NEUTROPHILS % (AUTO) 69.3 % (42.2-75.2); PLATELET COUNT (AUTO) 222 K/uL (140-450); RED BLOOD CELL COUNT(AUTO) 4.22 MIL/uL (4.20-5.40); RED CELL DISTRIBUTION WIDTH 15.9 % (11.6-13.7); WHITE BLOOD COUNT (AUTO) 4.6 K/uL (4.8-10.8)
[2018-09-20] MEDS: ALBUTEROL SULFATE/IPRATROPIU 3 ML SOL IH SCH ×3 (07:45→20:08)
[2018-09-20 07:49] LABS: ANION GAP 12.8 (8-16); CARBON DIOXIDE 26.4 mmol/L (21-32); CREATININE 0.6 mg/dL (0.6-1.3); POTASSIUM 4.2 mmol/L (3.5-5.1)
[2018-09-20 07:50] LABS: MAGNESIUM 2.2 mg/dL (1.8-2.4); PHOSPHORUS 3.9 mg/dL (2.5-4.9)
[2018-09-20 08:00] VITALS: BP 100/58
--- NOTE | 2018-09-20 08:38 | NUR ---
PHYSICAL THERAPY IS AT PATIENT BEDSIDE.
--- NOTE | 2018-09-20 08:39 | NUR ---
PATIENT HAS BEEN SCREENED AND CATEGORIZED HIGH NUTRITION RISK. PATIENT WILL BE SEEN WITHIN 1-2 DAYS OF ADMISSION. 09/20/[address]
[2018-09-20] MEDS: GABAPENTIN 300 MG CAP PO SCH ×2 (09:19→20:07)
[2018-09-20] MEDS: DOCUSATE SODIUM 100 MG GELCAP PO SCH (09:19)
[2018-09-20] MEDS: BACLOFEN 10 MG TAB PO SCH ×2 (09:19→20:07)
[2018-09-20] MEDS: PARoxetine 20 MG TAB PO SCH (09:19)
[2018-09-20] MEDS: METOPROLOL 25 MG TAB PO SCH ×2 (09:20→20:26)
[2018-09-20] MEDS: FLUDROCORTISONE 0.1 MG TAB PO SCH ×2 (09:20→20:06)
[2018-09-20] MEDS: LACTOBACILLUS RHAMNOSUS GG 1 EACH CAP PO SCH (09:20)
[2018-09-20] MEDS: ASPIRIN 81 MG TAB.CHEW PO SCH (09:20)
--- NOTE | 2018-09-20 10:30 | NUR ---
FREQUENT ROUNDING PT IS STABLE AND IN NO APPARENT DISTRESS. ALL SAFETY MEASURES ARE IN PLACE. WILL CONTINUE TO MONITOR.
[2018-09-20] MEDS ORDERED: MEDICATION REC. PHARMACY CONS. 1 EA MISC MC PRN (11:00)
[2018-09-20] MEDS ORDERED: MELATONIN 3 MG TAB PO PRN (11:00)
[2018-09-20 12:00] VITALS: BP 116/56
[2018-09-20] MEDS ORDERED: traMADol 50 MG TAB PO PRN (12:29)
--- NOTE | 2018-09-20 12:30 | NUR ---
FREQUENT ROUNDING ALL SAFETY MEASURES ARE IN PLACE. WILL CONTINUE TO MONITOR.
--- NOTE | 2018-09-20 14:45 | NUR ---
FREQUENT ROUNDING PT IS ASLEEP. NOTABLE CHEST RISE AND FALL, IV SITE IS PATENT AND INFUSING WITH NO SIGNS OF INFILTRATION OR INFLAMMATION. PT APPEARS STABLE AND IN NO APPARENT DISTRESS. ALL SAFETY MEASURES ARE IN PLACE. WILL CONTINUE TO MONITOR.
--- NOTE | 2018-09-20 14:49 | NUR ---
09/20/18 RD INITIAL ASSESSMENT COMPLETED PLEASE REFER TO NUTRITION ASSESSMENT UNDER CARE ACTIVITY FOR ESTIMATED NUTRITIONAL NEEDS. RD RECOMMENDATIONS: 1. RECOMMEND CONTINUE CARDIAC DIET. 2. RD WILL F/U 7 DAYS; LOW RISK. MICKI VEGA, RD
[2018-09-20 16:00] VITALS: BP 117/62
--- NOTE | 2018-09-20 17:07 | NUR ---
FAMILY AT BEDSIDE. PT IS IN BED HAPPY ALL SAFETY MEASURES ARE IN PLACE. WILL CONTINUE TO MONITOR.
[2018-09-20] MEDS: NACL 0.9% 1,000 ML IV SCH (17:17)
--- NOTE | 2018-09-20 17:53 | NUR ---
CONTACT BROTHER LUCINDA ROSSI [phone] WHEN PT TRANSFERS BACK TO [facility]
--- NOTE | 2018-09-20 18:36 | NUR ---
PT RESTING COMFORTABLY IN BED. PT APPEARS STABLE AND IN NO APPARENT DISTRESS. IV SITE INFUSING WITH NO SIGNS OF INFILTRATION OR INFLAMMATION. ALL SAFETY MEASURES ARE IN PLACE.
--- NOTE | 2018-09-20 19:29 | NUR ---
ENDORSED PT TO PARAMEDIC NURSE, PT IS STABLE AND ALL SAFETY MEASURES ARE IN PLACE.
--- NOTE | 2018-09-20 19:30 | NUR ---
RECEIVED PT SLEEPING, EASILY AROUSABLE, AAOX4, ABLE TO MAKE NEEDS KNOWN, VITAL SIGNS STABLE, DENIES ANY PAIN, IVF INFUSING WELL, PLAN OF CARE DISCUSSED WITH PT, SAFETY MEASURES IN PLACE, MAINTAINED ON CONTACT ISOLATION, ASSIST IN REPOSITIONING AND OFFLOAD PRESSURE AREAS, CALL LIGHT WITHIN REACH.
[2018-09-20 20:00] VITALS: BP 107/57
[2018-09-20] MEDS: PHENYTOIN 100 MG CAPER PO SCH (20:08)
[2018-09-20] MEDS: MONTELUKAST SODIUM 10 MG TAB PO SCH (20:08)
--- NOTE | 2018-09-20 20:20 | NUR ---
DUE MEDS ADMINISTERED, TOLERATED WELL, RT TINEO GAVE BREATHING TX, REPOSITIONED AND OFFLOAD PRESSURE AREAS, ALL NEEDS ATTENDED.
[2018-09-21] VITALS: BP 110/56
[2018-09-21] MEDS: MORPHINE SULFATE 2 MG/ML SYR IVP PRN ×3 (00:17→20:44)
--- NOTE | 2018-09-21 00:17 | NUR ---
PT COMPLAINING OF RT LEG PAIN, MEDICATED PRN WITH MORPHINE IVP, REPOSITIONED AND OFFLOAD PRESSURE AREAS, CONTINUE TO MONITOR CLOSELY.
[2018-09-21 04:00] VITALS: BP 113/45
--- NOTE | 2018-09-21 04:00 | NUR ---
PT SLEEPING, EASILY AROUSABLE, VITAL SIGNS STABLE, PAIN TO RT LEG WHEN TOUCHED OR MOVED, RT LEG ELEVATED WITH PILLOW, DRESSING DRY AND INTACT, MONITORED CLOSELY.
--- NOTE | 2018-09-21 07:15 | NUR ---
RECEIVED PT REPORT FROM COMPUTER SYSTEM VALIDATION SPECIALIST NURSE AT BEDSIDE. PT IS AWAKE AND ALERT, NO S/S OF ANY ACUTE DISTRESS OR SOB. PT IS ON ROOM AIR, SKIN INTACT ASIDE FROM THE CELLULITIS ON HER RLE. IV SITE IS IN THE LAC, 22 G, INFUSING NS 20 ML/HR. FALL PRECAUTIONS ARE IN PLACE. CALL LIGHT IS WITHIN REACH. WILL CONTINUE TO MONITOR.
--- NOTE | 2018-09-21 07:25 | NUR ---
PT SLEEPING, NO SIGNS OF DISTRESS, REPORT GIVEN TO MALATHI JERNIGAN FOR CONTINUITY OF CARE.
[2018-09-21] MEDS: ALBUTEROL SULFATE/IPRATROPIU 3 ML SOL IH SCH ×3 (07:47→20:06)
[2018-09-21 07:52] LABS: BASOPHILS % (AUTO) 0.2 % (0.0-2.0); HEMATOCRIT 36.6 % (36-48); LYMPHOCYTES # (AUTO) 1.2 K/uL (2.5-16.5); LYMPHOCYTES % (AUTO) 27.3 % (20.5-51.1); MEAN CORPUSCULAR HEMOGLOBIN 30 pg (27-31); MEAN CORPUSCULAR HGB CONC 33 g/dL (33-37); MEAN CORPUSCULAR VOLUME 89.6 fL (80-94); MONOCYTES # (AUTO) 0.5 K/uL (0.8-1.0); MONOCYTES % (AUTO) 10.7 % (1.7-9.3); NEUTROPHILS # (AUTO) 2.8 K/uL (1.8-7.7); NEUTROPHILS % (AUTO) 61.8 % (42.2-75.2); PLATELET COUNT (AUTO) 221 K/uL (140-450); RED BLOOD CELL COUNT(AUTO) 4.08 MIL/uL (4.20-5.40); RED CELL DISTRIBUTION WIDTH 15.9 % (11.6-13.7); WHITE BLOOD COUNT (AUTO) 4.5 K/uL (4.8-10.8)
[2018-09-21 08:00] VITALS: BP 116/64
[2018-09-21 09:03] LABS: ANION GAP 10.1 (8-16); CREATININE 0.7 mg/dL (0.6-1.3); POTASSIUM 4.1 mmol/L (3.5-5.1)
[2018-09-21] MEDS: ASPIRIN 81 MG TAB.CHEW PO SCH (09:03)
[2018-09-21] MEDS: LACTOBACILLUS RHAMNOSUS GG 1 EACH CAP PO SCH (09:04)
[2018-09-21] MEDS: PARoxetine 20 MG TAB PO SCH (09:04)
[2018-09-21] MEDS: BACLOFEN 10 MG TAB PO SCH ×2 (09:04→20:40)
[2018-09-21] MEDS: DOCUSATE SODIUM 100 MG GELCAP PO SCH (09:04)
[2018-09-21] MEDS: FLUDROCORTISONE 0.1 MG TAB PO SCH ×2 (09:04→20:39)
[2018-09-21] MEDS: METOPROLOL 25 MG TAB PO SCH ×2 (09:04→20:40)
[2018-09-21] MEDS: GABAPENTIN 300 MG CAP PO SCH ×2 (09:04→20:40)
--- NOTE | 2018-09-21 09:16 | NUR ---
AM MEDS ADMINISTERED BY STUDENT WITH RN'S AND INSTRUCTOR'S SUPERVISION. PT TOLERATED WELL.
--- NOTE | 2018-09-21 10:15 | NUR ---
PT SEEN BY DR CRUZ. PT IS ABLE TO MOVE TOES ON HER R FOOT AND HAS SENSATION ALL OVER HER RLE. THE SWELLING AND REDNESS FROM CELLULITIS HAS DECREASED FROM THE ORIGINAL PARAMETERS. .
--- NOTE | 2018-09-21 11:35 | NUR ---
PT HAVING A BED BATH AT THIS TIME.
--- NOTE | 2018-09-21 11:50 | NUR ---
DR CRUZ NOTIFIED OF PT'S REDNESS BETWEEN ABDOMINAL AND BREAST SKIN FOLDS, AND HE WILL PLACE AN ORDER FOR INTERDRY.
[2018-09-21 12:00] VITALS: BP 102/63
[2018-09-21] MEDS ORDERED: INTERDRY CLOTH TP SCH (12:05)
[2018-09-21] MEDS ORDERED: INTERDRY CLOTH TP PRN (12:05)
--- NOTE | 2018-09-21 15:05 | NUR ---
PT IS NAPPING COMFORTABLY, NO S/S OF ANY ACUTE DISTRESS NOTED AT THIS TIME. WILL CONTINUE TO MONITOR.
[2018-09-21 16:00] VITALS: BP 109/49
--- NOTE | 2018-09-21 19:15 | NUR ---
PT ENDORSED TO SERVICE WRITER ADVISOR NURSE IN STABLE CONDITION.
--- NOTE | 2018-09-21 19:16 | NUR ---
RECEIVED PT SLEEPING, EASILY AROUSABLE, AAOX4, ABLE TO MAKE NEEDS KNOWN, VITAL SIGNS STABLE, DENIES ANY PAIN, IVF INFUSING WELL, RT LEG DRESSING DRY AND INTACT, PLAN OF CARE DISCUSSED WITH PT, SAFETY MEASURES IN PLACE, GENERALIZED WEAKNESS, WILL REPOSITION Q2H AND OFFLOAD PRESSURE AREAS, CALL LIGHT WITHIN REACH.
[2018-09-21 20:00] VITALS: BP 114/55
--- NOTE | 2018-09-21 20:10 | NUR ---
PT CALLED AND WANTS TO VOID, OFFERED BED IZAGUIRRE AND BUT INSIST IN USING BEDSIDE COMMODE, MAXIMUM ASSIST TO BEDSIDE COMMODE BY PRICING DIRECTOR AND RN, PT HAD A WELL FORMED STOOL MODERATE AMOUNT AND VOIDED FREELY, PERINEAL CARE DONE BY ARNOLD ROLDAN, ASSISTED BACK TO BED, REPOSITIONED AND OFFLOAD PRESSURE AREAS, ALL NEEDS ATTENDED.
[2018-09-21] MEDS: PHENYTOIN 100 MG CAPER PO SCH (20:39)
[2018-09-21] MEDS: MONTELUKAST SODIUM 10 MG TAB PO SCH (20:40)
[2018-09-21] MEDS: MUPIROCIN CA NASAL 2% 1GM TUBE NS SCH (20:43)
--- NOTE | 2018-09-21 20:45 | NUR ---
DUE PO MEDS ADMINISTERED, TOLERATED WELL, ORAL CARE DONE WITH MINIMAL ASSIST, MONITORED CLOSELY.
[2018-09-21] MEDS: CHLORHEXADINE GLUC 2% CLOTH TP SCH (20:56)
[2018-09-21] MEDS: NACL 0.9% 1,000 ML IV SCH (20:56)
[2018-09-21] MEDS ORDERED: CLINDAMYCIN 600 MG/4 ML VIAL ONE (21:24)
[2018-09-21] MEDS: CLINDAMYCIN 600 MG in DEXTROSE 5% 50 ML IV SCH (21:26)
[2018-09-21] MEDS ORDERED: cefTRIAXone 1,000 MG VIAL ONE (21:43)
--- NOTE | 2018-09-21 23:50 | NUR ---
PT SLEEPING, EASILY AROUSABLE, VITAL SIGNS STABLE, DENIES ANY PAIN, IVF INFUSING WELL, PT WENT BACK TO SLEEP, CONTINUE TO MONITOR CLOSELY.
[2018-09-22] VITALS: BP 102/53
[2018-09-22 04:00] VITALS: BP 106/62
[2018-09-22] MEDS ORDERED: CLINDAMYCIN 600 MG/4 ML VIAL ONE (04:23)
[2018-09-22] MEDS: CLINDAMYCIN 600 MG in DEXTROSE 5% 50 ML IV SCH (04:39)
--- NOTE | 2018-09-22 05:55 | NUR ---
PT SLEEPING, EASILY AROUSABLE, DENIES ANY PAIN, STATED "IM NOT WET", NO SEIZURE EPISODE THE WHOLE SHIFT, IVF INFUSING WELL, MONITORED CLOSELY.
--- NOTE | 2018-09-22 07:17 | NUR ---
PT SLEEPING, NO SIGNS OF DISTRESS, BEDSIDE REPORT GIVEN TO MALATHI JERNIGAN FOR CONTINUITY OF CARE.
--- NOTE | 2018-09-22 07:20 | NUR ---
REPORT RECEIVED FROM ADULT EDUCATION PROFESSIONAL NURSE AT BEDSIDE. PT IS AWAKE AND ALERT, ON ROOM AIR, NO S/S OF ANY ACUTE DISTRESS NOTED. IV SITE ON THE LAC 22 G, INFUSING NS 20 ML/HR. RLE CELLULITIS APPEARS TO BE DECREASING IN SWELLING AND REDNESS. DRY DRESSING INTACT ON THE SUPERFICIAL ABRASION ON R CALF. FALL PRECAUTIONS ARE IN PLACE, AND PT IS ON CONTACT ISOLATION FOR MRSA NARES. CALL LIGHT IS WITHIN REACH. WILL CONTINUE TO MONITOR.
--- NOTE | 2018-09-22 07:29 | NUR ---
PATIENT CURRENTLY ON BED IZAGUIRRE NO SOB NOTED DIGITAL MARKETING PROJECT MANAGER TO ATTEMPT [facility] THERAPY AND RESPIRATORY DRUG AT A LATER TIME
[2018-09-22 07:35] LABS: BASOPHILS % (AUTO) 0.4 % (0.0-2.0); HEMATOCRIT 36.8 % (36-48); HEMOGLOBIN 12.2 g/dL (12.0-16.0); LYMPHOCYTES % (AUTO) 21.5 % (20.5-51.1); MEAN CORPUSCULAR HEMOGLOBIN 29 pg (27-31); MEAN CORPUSCULAR HGB CONC 33 g/dL (33-37); MEAN CORPUSCULAR VOLUME 88.7 fL (80-94); MONOCYTES # (AUTO) 0.4 K/uL (0.8-1.0); NEUTROPHILS # (AUTO) 3.2 K/uL (1.8-7.7); NEUTROPHILS % (AUTO) 69.1 % (42.2-75.2); PLATELET COUNT (AUTO) 228 K/uL (140-450); RED BLOOD CELL COUNT(AUTO) 4.15 MIL/uL (4.20-5.40); RED CELL DISTRIBUTION WIDTH 15.5 % (11.6-13.7); WHITE BLOOD COUNT (AUTO) 4.6 K/uL (4.8-10.8)
[2018-09-22 08:00] VITALS: BP 100/50
[2018-09-22 08:29] LABS: ANION GAP 10.8 (8-16); CARBON DIOXIDE 27.1 mmol/L (21-32); CREATININE 0.7 mg/dL (0.6-1.3); POTASSIUM 3.9 mmol/L (3.5-5.1)
[2018-09-22] MEDS: ALBUTEROL SULFATE/IPRATROPIU 3 ML SOL IH SCH ×3 (08:34→20:43)
[2018-09-22] MEDS: METOPROLOL 25 MG TAB PO SCH ×2 (09:00→21:05)
[2018-09-22] MEDS ORDERED: VANCOMYCIN PER PHARMACY MC PRN (09:05)
[2018-09-22] MEDS: FLUDROCORTISONE 0.1 MG TAB PO SCH ×2 (10:58→21:05)
[2018-09-22] MEDS: PARoxetine 20 MG TAB PO SCH (10:58)
[2018-09-22] MEDS: LACTOBACILLUS RHAMNOSUS GG 1 EACH CAP PO SCH (10:58)
[2018-09-22] MEDS: GABAPENTIN 300 MG CAP PO SCH ×2 (10:59→21:05)
[2018-09-22] MEDS: ASPIRIN 81 MG TAB.CHEW PO SCH (10:59)
[2018-09-22] MEDS: DOCUSATE SODIUM 100 MG GELCAP PO SCH (10:59)
[2018-09-22] MEDS: BACLOFEN 10 MG TAB PO SCH ×2 (10:59→21:05)
[2018-09-22] MEDS: VANCOMYCIN 1GM/DEXT 5% PREMIX 200 ML IV SCH ×2 (11:13→22:21)
--- NOTE | 2018-09-22 11:20 | NUR ---
PT'S SCHEDULED AM MEDS ADMINISTERED, PT TOLERATED WELL. WILL CONTINUE TO MONITOR.
[2018-09-22 12:00] VITALS: BP 121/63
[2018-09-22] MEDS ORDERED: CLINDAMYCIN PHOS 600MG/D5W PM 50 ML IV SCH (13:00)
--- NOTE | 2018-09-22 13:36 | NUR ---
ASSISTED PT TO THE BEDSIDE COMMODE. PT IS ABLE TO PIVOT AND TAKE SMALL STEPS TO AND FROM THE BED.
[2018-09-22 16:00] VITALS: BP 127/55
--- NOTE | 2018-09-22 16:42 | NUR ---
PT WORKING ON HER WORD PUZZLE BOOK. NO S/S OF ANY ACUTE DISTRESS NOTED. WILL CONTINUE TO MONITOR.
--- NOTE | 2018-09-22 17:32 | NUR ---
DR CARVAJAL NOTIFIED OF PT'S RLE WOUND CULTURE POSITIVE FOR MRSA.
[2018-09-22] MEDS: NACL 0.9% 1,000 ML IV SCH (17:40)
--- NOTE | 2018-09-22 18:14 | NUR ---
PT DOES NOT WANT TO EAT THE TRAY DINNER SERVED, INSTEAD REQUESTED A TURKEY SANDWICH.
--- NOTE | 2018-09-22 19:12 | NUR ---
PT ENDORSED TO BUSINESS PARTNER NURSE IN STABLE CONDITION.
--- NOTE | 2018-09-22 19:25 | NUR ---
Received endorsement from AM shift RN; patient A/Ox4, able to make needs known, bedrest with bedside commode privileges. Patient is watching TV, introduced self, updated board. No SOB or distress noted, on room air. IV site on left antecubital, 22 gauge, intact with IVF running at 20mL/hr. Bed in the lowest position, call light within reach. Initial assessment done. Will continue to monitor.
[2018-09-22 20:00] VITALS: BP 138/72
--- NOTE | 2018-09-22 20:50 | NUR ---
Vitals taken, due meds given. Tolerated well.
[2018-09-22] MEDS: MUPIROCIN CA NASAL 2% 1GM TUBE NS SCH (20:57)
[2018-09-22] MEDS: CHLORHEXADINE GLUC 2% CLOTH TP SCH (20:57)
[2018-09-22] MEDS: MONTELUKAST SODIUM 10 MG TAB PO SCH (21:05)
[2018-09-22] MEDS: PHENYTOIN 100 MG CAPER PO SCH (21:06)
[2018-09-22] MEDS: MORPHINE SULFATE 2 MG/ML SYR IVP PRN (22:21)
--- NOTE | 2018-09-22 22:25 | NUR ---
Patient reported 10/10 right leg pain; administered PRN medication as ordered and per pain scale. Will continue to monitor.
--- NOTE | 2018-09-22 22:56 | NUR ---
Checks made, no distress noted.
[2018-09-23] VITALS: BP 120/52
--- NOTE | 2018-09-23 00:10 | NUR ---
Vitals taken, patient is watching TV. No SOB or distress noted.
--- NOTE | 2018-09-23 01:20 | NUR ---
Patient repositioned to left lateral side. No distress noted.
--- NOTE | 2018-09-23 03:30 | NUR ---
Patient asleep, visible chest rise and fall noted.
[2018-09-23 04:00] VITALS: BP 125/66
--- NOTE | 2018-09-23 04:50 | NUR ---
Vitals taken, no distress noted.
[2018-09-23] MEDS: ALBUTEROL SULFATE/IPRATROPIU 3 ML SOL IH SCH ×2 (06:49→13:05)
--- NOTE | 2018-09-23 07:05 | NUR ---
Endorsed patient to AM shift RN for continuity of care; patient in stable condition.
--- NOTE | 2018-09-23 07:07 | NUR ---
RECEIVED BEDSIDE REPORT FROM COTTON TIER NURSE FOR CONTINUITY OF CARE. PATIENT IS RESTING ON BED AT THIS TIME. PATIENT IS AOX4, TO NAME, PLACE, DATE AND TIME. ABLE TO MAKE NEEDS KNOWN AND ABLE TO FOLLOW TO FOLLOW COMMANDS. COMMUNICATE APPROPRIATELY. RESPIRATION EVEN AND UNLABORED. ON RA. DENIES PAIN AND SOB. NO SIGNS OF DISTRESS NOTED. IV ON LAC 20G, INTACT AND DRY, INFUSING PER MD ORDER. REDNESS ON R LEG NOTED, OTHERWISE SKIN INTACT AND DRY. INTERDRY CLOTHES ON BREASTS, AND STOMACH NOTED. ABLE TO AMBULATE WITH ASSIST. BEDSIDE COMMODE IN PLACE. CONTACT PRECAUTION IN PLACE. DISCUSSED PLAN OF CARE WITH PATIENT, AND PATIENT VERBALIZED UNDERSTANDING. BED IN LOW POSITION AND CALL LIGHT WITHIN REACH. INSTRUCTED PATIENT TO USE THE CALL LIGHT FOR ANY ASSISTANCE AND PATIENT WAS AWARE.
[2018-09-23 08:00] VITALS: BP 133/67
--- NOTE | 2018-09-23 09:30 | NUR ---
P.T. NOTES PATIENT REFUSED TODAY'S P.T. VISIT AND STATED SHE DOES NOT WANT ANY P.T. SERVICES ANYMORE AFTER SHE REPORTED THAT THERAPY MAKES HER (R) LEG MORE PAINFUL. PLAN: WE'LL D/C P.T. NOW PER HER REQUEST.
[2018-09-23] MEDS: LACTOBACILLUS RHAMNOSUS GG 1 EACH CAP PO SCH (09:39)
[2018-09-23] MEDS: ASPIRIN 81 MG TAB.CHEW PO SCH (09:39)
[2018-09-23] MEDS: PARoxetine 20 MG TAB PO SCH (09:40)
[2018-09-23] MEDS: GABAPENTIN 300 MG CAP PO SCH (09:40)
[2018-09-23] MEDS: DOCUSATE SODIUM 100 MG GELCAP PO SCH (09:40)
[2018-09-23] MEDS: FLUDROCORTISONE 0.1 MG TAB PO SCH (09:40)
[2018-09-23] MEDS: BACLOFEN 10 MG TAB PO SCH (09:41)
[2018-09-23] MEDS: METOPROLOL 25 MG TAB PO SCH (09:41)
--- NOTE | 2018-09-23 09:52 | NUR ---
ADMINISTERED MEDS PER MD ORDER, PATIENT TOLERATED WELL. PATIENT IS AWAKE AND TALKING ON THE PHONE ON BED. DENIES PAIN AND SOB. NO SIGNS OF DISTRESS NOTED. BED ALARM ACTIVATED. BED IN LOW POSITION, AND CALL LIGHT WITHIN REACH. INSTRUCTED PATIENT TO USE THE CALL LIGHT FOR ANY ASSISTANCE AND PATIENT WAS AWARE. TELE MONITOR ATTACHED.
[2018-09-23] MEDS ORDERED: CHLO118S2 TP (10:16)
[2018-09-23] MEDS ORDERED: Vancomycin Per Pharmacy MC (10:16)
[2018-09-23] MEDS ORDERED: MUPI2CRE22 NS (10:16)
--- NOTE | 2018-09-23 11:05 | NUR ---
IV INFILTRATED, D/C IV AND CANNULA INTACT, MINIMAL BLEEDING AT IV SITE. RESTARTED IV ON R FA 22G, INTACT AND PATENT. PATIENT TOLERATED WELL. NO SIGNS OF DISTRESS NOTED. SAFETY MEASURES IN PLACE. BED ALARM ACTIVATED. BED IN LOW POSITION AND CALL LIGHT WITHIN REACH. INSTRUCTED PATIENT TO USE THE CALL LIGHT FOR ANY ASSISTANCE AND PATIENT WS AWARE.
[2018-09-23 11:24] LABS: ANION GAP 12.3 (8-16); CARBON DIOXIDE 26.8 mmol/L (21-32); POTASSIUM 4.1 mmol/L (3.5-5.1)
[2018-09-23 11:25] LABS: CREATININE 0.7 mg/dL (0.6-1.3)
[2018-09-23] MEDS: VANCOMYCIN 1GM/DEXT 5% PREMIX 200 ML IV SCH (11:43)
[2018-09-23 12:00] VITALS: BP 117/71
[2018-09-23] MEDS: MORPHINE SULFATE 2 MG/ML SYR IVP PRN ×2 (13:07→18:46)
--- NOTE | 2018-09-23 13:08 | NUR ---
PATIENT IS COMPLAINING OF SEVERE PAIN 10/10. MEDICATED WITH PRN MORPHINE. RT IS PROVIDING TREATMENT TO PATIENT AT THIS TIME. NO SIGNS OF DISTRESS NOTED. SAFETY MEASURES IN PLACE. BED IN LOW POSITION AND CALL LIGHT WITHIN REACH. INSTRUCTED PATIENT TO USE THE CALL LIGHT FOR ANY ASSISTANCE AND PATIENT WAS AWARE.
--- NOTE | 2018-09-23 13:56 | NUR ---
Package Reinspector Note: I faxed patient's medical information to [facility].
--- NOTE | 2018-09-23 15:29 | NUR ---
PATIENT IS TALKING ON THE PHONE AT THIS TIME. DENIES PAIN AND SOB. NO SIGNS OF DISTRESS NOTED. SAFETY MEASURES IN PLACE. BED IN LOW POSITION, AND CALL LIGHT WITHIN REACH. BED ALARM ACTIVATED. TELE MONITOR ATTACHED.
--- NOTE | 2018-09-23 15:46 | NUR ---
Social Service Note: Per Roopa from [facility] , patient has exhausted Medicare snf days, therefore, they will need snf authorization from [facility], I called and spoke with Boiler Coverer Dorcas of this. Per Dorcas, she will provide snf auth to [facility]. She stated [facility] can be contacted, auth [id number]. Per Roopa, patient may go to room 100C at their facility, accepting physician is . Boiler Coverer Trinity contacted [facility] [employer], cook pickled meat time is 6pm, patient's nurse Kathy britt.
[2018-09-23 16:00] VITALS: BP 116/60
[2018-09-23] MEDS: NACL 0.9% 1,000 ML IV SCH (17:37)
--- NOTE | 2018-09-23 18:47 | NUR ---
PATIENT COMPLAINED OF 10/10 PAIN ON HER LEG. ADMINISTERED PRN PAIN MED. PATIENT TOLERATED WELL. PATIENT HAS CHANGED INTO [place] [place] AND PENDING ON [facility] ARRIVAL. SAFETY MEASURES IN PLACE. TELE MONITOR ATTACHED.
--- NOTE | 2018-09-23 19:20 | NUR ---
ENDORSED PATIENT AT BEDSIDE TO REGENERATION OPERATOR NURSE FOR CONTINUITY OF CARE. PATIENT CHANGED INTO [facility] [place] AND WAITING FOR [facility].
[2018-09-23] MEDS: MUPIROCIN CA NASAL 2% 1GM TUBE NS SCH (19:48)
[2018-09-23] MEDS: CHLORHEXADINE GLUC 2% CLOTH TP SCH (19:48)
== END 2018-09-23 20:07 | DRG 603 ==
LOC: MED 13:52 → MTU 17:15
PROVIDERS: ADMIT General Practice; ATTEND General Practice
DX: L03.115 Cellulitis of right lower limb (principal); E44.0 Moderate protein-calorie malnutrition; Z68.43 Body mass index [BMI] 50.0-59.9, adult; I69.354 Hemiplegia and hemiparesis following cerebral infarction affecting left non-dominant side; I49.5 Sick sinus syndrome; I73.9 Peripheral vascular disease, unspecified; G90.9 Disorder of the autonomic nervous system, unspecified; I10 Essential (primary) hypertension; J44.9 Chronic obstructive pulmonary disease, unspecified; Z96.651 Presence of right artificial knee joint; G40.909 Epilepsy, unspecified, not intractable, without status epilepticus; E66.01 Morbid (severe) obesity due to excess calories; F32.9 Major depressive disorder, single episode, unspecified; I48.91 Unspecified atrial fibrillation; R73.03 Prediabetes; I95.1 Orthostatic hypotension; E02 Subclinical iodine-deficiency hypothyroidism; M62.838 Other muscle spasm; Z79.899 Other long term (current) drug therapy; Z95.0 Presence of cardiac pacemaker; I25.2 Old myocardial infarction; Z98.49 Cataract extraction status, unspecified eye
CPT/HCPCS: 36415; 71045; 73590; 76536; 80048; 80053; 80185; 80202; 80305; 81003; 82150; 83036; 83605; 83690; 83735; 83880; 84100; 84439; 84443; 84484; 85025; 85610; 85730; 87040; 87070; 87081; 87086; 87186; 93005; 93971; 94640; 96365; 96375; 97116; 97530; 99285; C1758; J0690; J0696; J1644; J1885; J2270; J3370; J3490; J7030; J7060; J7620; Q0092